=== PATIENT | female | born 1955 | race African-American/Black ===

== ENCOUNTER → 2016-12-19 | Outpatient (CLI) | payer MEDICARE ==
[2016-01-21 17:04] VITALS: BP 144/80
[~2016-12-19] MED LIST: GABA-586 PO; HYDR-971 PO; INSU100C4 SQ; INSU100I27 SQ; REGADENOSON 0.4 MG/5 ML DISP.SYRIN. IV ONE
--- NOTE | 2016-12-19 12:59 | RAD ---
APPROVED REPORT Test Type: Pharmacological Stress Nurse/Tech: Deanna Dietrich R.N. Test Indications: chest pain Cardiac History: Family history, Hypertension, Diabetes Medications: See Electronic Medical Record Medical History: See Electronic Medical Record Resting ECG: NSR Resting Heart Rate: 74 bpm Resting Blood Pressure: 135/71mmHg Pretest Chest Pain: No chest pain Nurse/Tech Notes S1S2, lungs sound clear Consent: The procedure was explained to the patient in lay terms. Informed consent was witnessed. Burt eout was entered into [employer]. History and Stress Test performed by Deanna Dietrich R.N. Pharm. Details Pharmacologic stress testing was performed using 0.4mg per 5ml of regadenoson given intravenously ove r 7-10 seconds. POST EXERCISE Reason for Termination: Infusion complete Max HR: 132 bpm Max Blood Pressure: 119/68mmHg Chest Pain: No. Arrhythmia: No. ST Change: No. INTERPRETATION Stress EKG Conclusion: No evidence of stress induced EKG changes. Imaging Protocol IMAGE PROTOCOL: Rest Tc-99m/stress Tc-99m 1 day Rest: Stress: Viability: Radiopharm.Tc99m [id number] Sestamibi Dose12.6mCi 34mCi Duration 15min. 10min. Img Date 12/19/2016 12/19/2016 Inj-Img [id number]. 60min. Rest Admin Site:IV - Right AntecubitalAdministrator:CONNER Bess Stress Admin Site: IV - Right AntecubitalAdministrator: Socorro Rascon, RT (R)(N) STRESS DATA End Diast. Vol.76.0mlAv. Heart Rate92.0bpm End Syst. Vol.21.0mlCO Index BSA0.0L/min Myocardial Whqa683.0gEject. Esgqbpru24.0% Stress Rates Pk. Fill Rate4.59EDV/secLVtime Pk. Fill 156.39msec Pk. Empty Rate4.13ESV/secLVtime Pk. Giegx823.62msec 07/11 Pk. Fill0.77EDV/sec Stress Scores Regional WT0.00Summed WT3.00 Regional WM0.00Summed WM0.00 The rest and stress images show normal perfusion, normal contraction and thickening. LV Perf. Quant 17 Seg. SSS0.00 17 Seg. SRS3.00 17 Seg. SDS0.00 Stress Defect Extent (% LAD)0.00Rest Defect Extent (% LAD)0.00Rev. Defect Extent (% LAD)0.00 Stress Defect Extent (% LCX) 0.00Rest Defect Extent (% LCX)0.00Rev. Defect Extent (% LCX)0.00 Stress Defect Extent (% RCA)0.00Rest Defect Extent (% RCA)0.00Rev. Defect Extent (% RCA)0.00 Stress Defect Extent (% WENDY)0.00Rest Defect Extent (% WENDY)0.00Rev. Defect Extent (% WENDY)0.00 Other Information Quality:Good Risk Assessment: Low Risk Conclusion 1. No evidence of stress induced EKG changes. 2. Normal perfusion at stress/rest. 3. Normal EF at > 60% 4. Low risk study
== END | disposition home or self-care (01) ==
LOC: NM 07:40
PROVIDERS: ATTEND Internal Medicine Cardiovascular Disease
DX: R07.9 Chest pain, unspecified (principal)
CPT/HCPCS: 78452; 93017; 96374; 96375; 96376; A9500; J2785

== ENCOUNTER 2017-03-09 22:11 | Emergency (ER) | payer MEDICARE ==
[~2017-03-09 22:11] MED LIST changes: +ASPI-630 PO; +ATOR20TA58 PO; +INSU200I SQ; +LISI-338 PO; +LISI1TAB3 PO; +METO25TA4 PO; -REGADENOSON 0.4 MG/5 ML DISP.SYRIN. IV ONE; +TICA90TA PO
[2017-03-09 22:56] LABS: BILIRUBIN,URINE NEGATIVE (NEG); GLUCOSE,URINE NEGATIVE (NEG); NITRITE,URINE NEGATIVE (NEG); PROTEIN,URINE NEGATIVE (NEG-TRACE)
[2017-03-09 23:05] LABS: BACTERIA,URINE MODERATE /HPF (0-FEW); RBC,URINE 0 /HPF (0-2)
[2017-03-09 23:06] LABS: SQUAMOUS EPITHELIAL CELL,UR MOD /LPF
[2017-03-09 23:29] LABS: BASO % 0 % (0-3); EOS % 2 % (0-3); HEMATOCRIT 35.4 % (36.0-47.0); HEMOGLOBIN 11.6 g/dL (12.0-15.5); LYMPH # 2.4 x10^3/uL (1.0-4.8); LYMPH % 23 % (24-48); MEAN CORPUSCULAR HEMOGLOBIN 31 pg (25-35); MEAN CORPUSCULAR HGB CONC 33 g/dL (31-37); MEAN CORPUSCULAR VOLUME 94 fL (79-100); MONO % 8 % (0-9); NEUT % 67 % (31-73); PLATELET COUNT 305 x10^3/uL (140-400); RED BLOOD COUNT 3.75 x10^6/uL (3.50-5.40); RED CELL DISTRIBUTION WIDTH 13.2 % (11.5-14.5); WHITE BLOOD COUNT 10.7 x10^3/uL (4.0-11.0)
[2017-03-09 23:39] LABS: CALCIUM 9.9 mg/dL (8.5-10.1); GFR 68.7; POTASSIUM 3.8 mmol/L (3.5-5.1)
[2017-03-09 23:46] LABS: ALBUMIN 3.8 g/dL (3.4-5.0); ALBUMIN/GLOBULIN RATIO 0.9 (1.0-1.7); TOTAL BILIRUBIN 0.3 mg/dL (0.2-1.0)
[2017-03-10 00:31] VITALS: BP 118/76
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
--- NOTE | 2017-03-10 09:02 | EKG ---
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
== END 2017-03-10 01:01 | disposition home or self-care (01) ==
LOC: ER 22:58
DX: E11.649 Type 2 diabetes mellitus with hypoglycemia without coma (principal); I10 Essential (primary) hypertension; M79.7 Fibromyalgia; Z79.4 Long term (current) use of insulin; Z95.1 Presence of aortocoronary bypass graft; Z95.5 Presence of coronary angioplasty implant and graft; Z88.6 Allergy status to analgesic agent
CPT/HCPCS: 36415; 80053; 81001; 82962; 85025; 87086; 93005; 99285-25

== ENCOUNTER → 2017-04-17 | Outpatient (CLI) | payer MEDICARE ==
--- NOTE | 2017-04-17 15:00 | RAD ---
Indication nontraumatic weakness left ring finger. Inability to extend the digit. AP oblique and lateral views of the left hand were obtained. There is suspect bony demineralization. No acute bony finding is seen. Significant degenerative changes are not apparent on plain films
[2017-04-17 15:58] LABS: CREATINE KINASE 187 U/L (26-192); GLUCOSE 305 mg/dL (70-99)
== END | disposition home or self-care (01) ==
LOC: RAD 13:57
PROVIDERS: ATTEND Psychiatry & Neurology Neurology
DX: R53.1 Weakness (principal)
CPT/HCPCS: 36415; 73130; 82306; 82550; 82607; 82947; 84443

== ENCOUNTER 2017-10-02 16:36 | Inpatient (IN) | payer MEDICARE ==
[2017-10-02 17:45] LABS: ADD MAN DIFF? NO
[2017-10-02] MEDS ORDERED: 0.9 % SODIUM CHLORIDE 10 ML DISP.SYRIN. IV (17:45)
[2017-10-02 17:46] LABS: BASO % 0 % (0-3); EOS # 0.1 x10^3/uL (0.0-0.7); EOS % 1 % (0-3); HEMATOCRIT 36.5 % (36.0-47.0); HEMOGLOBIN 12.2 g/dL (12.0-15.5); LYMPH # 2.4 x10^3/uL (1.0-4.8); LYMPH % 29 % (24-48); MEAN CORPUSCULAR HEMOGLOBIN 31 pg (25-35); MEAN CORPUSCULAR HGB CONC 33 g/dL (31-37); MEAN CORPUSCULAR VOLUME 92 fL (79-100); MONO # 0.6 x10^3/uL (0.0-1.1); MONO % 7 % (0-9); NEUT # 5.3 x10^3uL (1.8-7.7); NEUT % 63 % (31-73); PLATELET COUNT 293 x10^3/uL (140-400); RED BLOOD COUNT 3.96 x10^6/uL (3.50-5.40); RED CELL DISTRIBUTION WIDTH 14.3 % (11.5-14.5); WHITE BLOOD COUNT 8.4 x10^3/uL (4.0-11.0)
[2017-10-02] MEDS: ONDANSETRON PF 4 MG/2 ML VIAL. IV ×2 (17:50→20:43)
[2017-10-02] MEDS: IV NORMAL SALINE 1000ML BAG 1,000 ML IV ×2 (17:50→20:44)
[2017-10-02] MEDS: MORPHINE SULFATE 4 MG/ML DISP.SYRIN. IV/SQ ×2 (17:50→18:55)
[2017-10-02 17:59] LABS: ANION GAP 8 (6-14); BLOOD UREA NITROGEN 11 mg/dL (7-20); CALCIUM 9.4 mg/dL (8.5-10.1); CARBON DIOXIDE 30 mmol/L (21-32); CHLORIDE 106 mmol/L (98-107); CREATININE 0.8 mg/dL (0.6-1.0); GFR 88.5; GLUCOSE 133 mg/dL (70-99); POTASSIUM 3.9 mmol/L (3.5-5.1); SODIUM 144 mmol/L (136-145)
[2017-10-02 18:03] LABS: ALBUMIN 3.5 g/dL (3.4-5.0); ALK PHOS 79 U/L (46-116); ALT (SGPT) 25 U/L (14-59); AST (SGOT) 20 U/L (15-37); DIRECT BILIRUBIN < 0.1 mg/dL (0.0-0.2); LIPASE 66 U/L (73-393); TOTAL BILIRUBIN 0.4 mg/dL (0.2-1.0); TOTAL PROTEIN 8.3 g/dL (6.4-8.2)
[2017-10-02 18:05] LABS: TROPONINI 0.031 ng/mL (0.000-0.055)
[2017-10-02 18:11] LABS: CKMB MASS 1.3 ng/mL (0.0-3.6); CREATINE KINASE 125 U/L (26-192)
[2017-10-02] MEDS ORDERED: CONTRAST GIVEN MC (18:15)
[2017-10-02] MEDS: IOHEXOL 300 MG/ML 100ML VIAL. IV (18:31)
[2017-10-02 18:57] LABS: BILIRUBIN,URINE NEGATIVE (NEG); CLARITY,URINE CLOUDY; COLOR,URINE YELLOW; GLUCOSE,URINE NEGATIVE (NEG); NITRITE,URINE NEGATIVE (NEG); PROTEIN,URINE NEGATIVE (NEG-TRACE)
[2017-10-02 19:42] LABS: BACTERIA,URINE 0 /HPF (0-FEW); RBC,URINE OCC /HPF (0-2); SQUAMOUS EPITHELIAL CELL,UR MOD /LPF
[2017-10-02 22:04] LABS: LACTIC ACID 0.9 mmol/L (0.4-2.0)
[2017-10-03] MEDS: ONDANSETRON PF 4 MG/2 ML VIAL. IV ×2 (01:08→13:57)
[2017-10-03] MEDS: MORPHINE SULFATE 4 MG/ML DISP.SYRIN. IV ×2 (01:26→06:43)
[2017-10-03 03:35] LABS: POC GLUCOSE 174 mg/dL (70-99)
[2017-10-03 07:50] LABS: POC GLUCOSE 173 mg/dL (70-99)
[2017-10-03] MEDS: IV NORMAL SALINE 1000ML BAG 1,000 ML IV ×2 (10:10→12:28)
[2017-10-03 11:05] LABS: POC GLUCOSE 168 mg/dL (70-99)
[2017-10-03] MEDS: FAMOTIDINE 20 MG/2 ML VIAL IVP ×2 (11:23→21:38)
[2017-10-03] MEDS: MORPHINE SULFATE 4 MG/ML DISP.SYRIN. IV/SQ (13:58)
[2017-10-03 17:08] LABS: POC GLUCOSE 173 mg/dL (70-99)
[2017-10-03] MEDS: ENOXAPARIN 40 MG/0.4 ML SYRINGE. SQ (17:56)
[2017-10-03 20:50] LABS: POC GLUCOSE 189 mg/dL (70-99)
[2017-10-03] MEDS: INSULIN DETEMIR 300 UNITS/3 ML INSULN.PEN. SQ (21:00)
[2017-10-03] MEDS: GABAPENTIN 300 MG CAPSULE. PO (21:00)
[2017-10-03] MEDS: POLYETHYLENE GLYCOL 3350 17 GM PACKET. PO (21:34)
[2017-10-03] MEDS: ATORVASTATIN CALCIUM 40 MG TABLET. PO (21:35)
[2017-10-03] MEDS: DOCUSATE SODIUM 100 MG CAPSULE. PO (21:35)
[2017-10-03] MEDS: METOPROLOL TART IMMED RELEASE 25 MG TABLET. PO (21:36)
[2017-10-03] MEDS: TICAGRELOR 90 MG TABLET. PO (21:38)
[2017-10-03] MEDS: INSULIN ASPART 300 UNITS/3 ML INSULN.PEN SQ (21:38)
[2017-10-03] MEDS: fentaNYL PF VIAL 100 MCG/2 ML VIAL IV (21:40)
[2017-10-04] MEDS: TICAGRELOR 90 MG TABLET. PO ×2 (07:22→21:31)
[2017-10-04] MEDS: INSULIN ASPART 300 UNITS/3 ML INSULN.PEN SQ ×7 (07:22→21:39)
[2017-10-04] MEDS: ASPIRIN CHEWABLE 81 MG TABLET. PO (07:22)
[2017-10-04] MEDS: INSULIN DETEMIR 300 UNITS/3 ML INSULN.PEN. SQ ×2 (07:23→21:39)
[2017-10-04 08:10] LABS: POC GLUCOSE 162 mg/dL (70-99)
[2017-10-04] MEDS: DOCUSATE SODIUM 100 MG CAPSULE. PO ×2 (08:11→21:00)
[2017-10-04] MEDS: METOPROLOL TART IMMED RELEASE 25 MG TABLET. PO ×2 (08:11→21:30)
[2017-10-04] MEDS: SORBITOL 70% 30 ML SOLUTION. PO (08:12)
[2017-10-04] MEDS: POLYETHYLENE GLYCOL 3350 17 GM PACKET. PO ×2 (08:12→21:00)
[2017-10-04] MEDS: LISINOPRIL 5 MG TABLET. PO (08:12)
[2017-10-04] MEDS: FAMOTIDINE 20 MG/2 ML VIAL IVP (08:13)
[2017-10-04 11:56] LABS: POC GLUCOSE 255 mg/dL (70-99)
[2017-10-04] MEDS: fentaNYL PF VIAL 100 MCG/2 ML VIAL IV ×2 (15:39→21:33)
[2017-10-04 16:30] LABS: POC GLUCOSE 273 mg/dL (70-99)
[2017-10-04 19:13] LABS: HCV ANTIBODY <0.1 s/co ratio (0.0-0.9); HEP A IGM ABDY Negative (Negative); HEP B SURFACE AG Negative (Negative)
[2017-10-04 20:02] LABS: POC GLUCOSE 175 mg/dL (70-99)
[2017-10-04 20:03] LABS: POC GLUCOSE 176 mg/dL (70-99)
[2017-10-04] MEDS: ATORVASTATIN CALCIUM 40 MG TABLET. PO (21:28)
[2017-10-04] MEDS: FAMOTIDINE 20 MG TABLET. PO (21:31)
[2017-10-05] MEDS: fentaNYL PF VIAL 100 MCG/2 ML VIAL IV ×2 (04:49→08:04)
[2017-10-05] MEDS: INSULIN ASPART 300 UNITS/3 ML INSULN.PEN SQ ×7 (07:30→21:00)
[2017-10-05] MEDS ORDERED: CONTRAST GIVEN MC (07:45)
[2017-10-05 08:24] LABS: POC GLUCOSE 104 mg/dL (70-99)
[2017-10-05] MEDS: IOHEXOL 300 MG/ML 100ML VIAL. IV (08:42)
[2017-10-05] MEDS: INSULIN DETEMIR 300 UNITS/3 ML INSULN.PEN. SQ ×2 (09:00→21:00)
[2017-10-05] MEDS: POLYETHYLENE GLYCOL 3350 17 GM PACKET. PO ×2 (09:00→21:00)
[2017-10-05] MEDS: DOCUSATE SODIUM 100 MG CAPSULE. PO ×2 (09:09→21:00)
[2017-10-05] MEDS: TICAGRELOR 90 MG TABLET. PO ×2 (09:10→21:01)
[2017-10-05] MEDS: METOPROLOL TART IMMED RELEASE 25 MG TABLET. PO ×2 (09:10→21:01)
[2017-10-05] MEDS: ASPIRIN CHEWABLE 81 MG TABLET. PO (09:10)
[2017-10-05] MEDS: LISINOPRIL 5 MG TABLET. PO (09:10)
[2017-10-05 11:40] LABS: POC GLUCOSE 166 mg/dL (70-99)
[2017-10-05] MEDS: MAGNESIUM CITRATE 296 ML SOLUTION. PO (14:17)
[2017-10-05 14:26] LABS: HEMATOCRIT 36.2 % (36.0-47.0); HEMOGLOBIN 11.9 g/dL (12.0-15.5); MEAN CORPUSCULAR HEMOGLOBIN 30 pg (25-35); MEAN CORPUSCULAR HGB CONC 33 g/dL (31-37); MEAN CORPUSCULAR VOLUME 92 fL (79-100); PLATELET COUNT 272 x10^3/uL (140-400); RED BLOOD COUNT 3.94 x10^6/uL (3.50-5.40); WHITE BLOOD COUNT 6.9 x10^3/uL (4.0-11.0)
[2017-10-05 14:43] LABS: ANION GAP 6 (6-14); BLOOD UREA NITROGEN 6 mg/dL (7-20); CALCIUM 8.8 mg/dL (8.5-10.1); CARBON DIOXIDE 31 mmol/L (21-32); CHLORIDE 104 mmol/L (98-107); GFR 68.4; GLUCOSE 250 mg/dL (70-99); POTASSIUM 3.1 mmol/L (3.5-5.1); SODIUM 141 mmol/L (136-145)
[2017-10-05 17:15] LABS: POC GLUCOSE 205 mg/dL (70-99)
[2017-10-05] MEDS: FAMOTIDINE 20 MG TABLET. PO (21:00)
[2017-10-05] MEDS: ATORVASTATIN CALCIUM 40 MG TABLET. PO (21:01)
[2017-10-05 21:14] LABS: POC GLUCOSE 78 mg/dL (70-99)
[2017-10-06] MEDS: ASPIRIN CHEWABLE 81 MG TABLET. PO (08:14)
[2017-10-06] MEDS: POLYETHYLENE GLYCOL 3350 17 GM PACKET. PO (08:14)
[2017-10-06] MEDS: DOCUSATE SODIUM 100 MG CAPSULE. PO (08:14)
[2017-10-06] MEDS: TICAGRELOR 90 MG TABLET. PO (08:14)
[2017-10-06] MEDS: LISINOPRIL 5 MG TABLET. PO (08:15)
[2017-10-06] MEDS: METOPROLOL TART IMMED RELEASE 25 MG TABLET. PO (08:16)
[2017-10-06] MEDS: INSULIN ASPART 300 UNITS/3 ML INSULN.PEN SQ ×4 (08:19→12:55)
[2017-10-06] MEDS: INSULIN DETEMIR 300 UNITS/3 ML INSULN.PEN. SQ (08:20)
[2017-10-06 08:27] LABS: POC GLUCOSE 206 mg/dL (70-99)
[2017-10-06 12:03] LABS: POC GLUCOSE 148 mg/dL (70-99)
== END 2017-10-06 13:00 | disposition home or self-care (01) | DRG 389 ==
LOC: 5 NORTH 23:17 → ER 16:36
DX: K56.609 Unspecified intestinal obstruction, unspecified as to partial versus complete obstruction (principal); N39.0 Urinary tract infection, site not specified; E11.42 Type 2 diabetes mellitus with diabetic polyneuropathy; E66.9 Obesity, unspecified; E78.5 Hyperlipidemia, unspecified; H54.7 Unspecified visual loss; I10 Essential (primary) hypertension; I25.10 Atherosclerotic heart disease of native coronary artery without angina pectoris; K21.9 Gastro-esophageal reflux disease without esophagitis; K66.0 Peritoneal adhesions (postprocedural) (postinfection); K59.09 Other constipation; M19.90 Unspecified osteoarthritis, unspecified site; M79.7 Fibromyalgia; Z79.82 Long term (current) use of aspirin; Z82.49 Family history of ischemic heart disease and other diseases of the circulatory system; Z83.3 Family history of diabetes mellitus; Z90.49 Acquired absence of other specified parts of digestive tract; Z90.710 Acquired absence of both cervix and uterus; Z95.5 Presence of coronary angioplasty implant and graft
CPT/HCPCS: 36415; 74022; 74177; 80048; 80074; 80076; 81001; 82553; 82962; 83605; 83690; 84484; 85025; 85027; 87086; 93005; 96374; 97161-GP; 99285; 99285-25; J1650; J1815; J1956; J2270; J2405; J3010; J7030; Q9967; S0028

== ENCOUNTER → 2018-01-10 | Outpatient (CLI) | payer MEDICARE | END | disposition home or self-care (01) | LOC: MAMMO 09:40 | DX: Z12.31 Encounter for screening mammogram for malignant neoplasm of breast (principal); I10 Essential (primary) hypertension; E11.9 Type 2 diabetes mellitus without complications; E78.5 Hyperlipidemia, unspecified; E78.00 Pure hypercholesterolemia, unspecified | CPT/HCPCS: 77063; 77067 ==

== ENCOUNTER 2018-01-18 10:03 | Observation (INO) | payer MEDICARE, OTHER ==
[2018-01-18 10:40] LABS: ADD MAN DIFF? NO
[2018-01-18] MEDS: ASPIRIN CHEWABLE 81 MG TABLET. PO ×2 (10:44→14:00)
[2018-01-18] MEDS: NITROGLYCERIN SUBLINGUAL 0.4 MG BOTTLE OF 25. SL (10:45)
[2018-01-18 10:47] LABS: BASO % 1 % (0-3); EOS # 0.1 x10^3/uL (0.0-0.7); EOS % 2 % (0-3); HEMOGLOBIN 12.2 g/dL (12.0-15.5); LYMPH # 2.2 x10^3/uL (1.0-4.8); LYMPH % 28 % (24-48); MEAN CORPUSCULAR HEMOGLOBIN 30 pg (25-35); MEAN CORPUSCULAR HGB CONC 33 g/dL (31-37); MEAN CORPUSCULAR VOLUME 92 fL (79-100); MONO # 0.7 x10^3/uL (0.0-1.1); MONO % 8 % (0-9); NEUT # 4.8 x10^3uL (1.8-7.7); NEUT % 62 % (31-73); PLATELET COUNT 278 x10^3/uL (140-400); RED BLOOD COUNT 4.02 x10^6/uL (3.50-5.40); RED CELL DISTRIBUTION WIDTH 14.1 % (11.5-14.5); WHITE BLOOD COUNT 7.8 x10^3/uL (4.0-11.0)
[2018-01-18 10:52] LABS: ANION GAP 6 (6-14); BLOOD UREA NITROGEN 13 mg/dL (7-20); BUN/CREATININE RATIO 16 (6-20); CALCIUM 9.3 mg/dL (8.5-10.1); CARBON DIOXIDE 31 mmol/L (21-32); CHLORIDE 105 mmol/L (98-107); CREATININE 0.8 mg/dL (0.6-1.0); GFR 88.5; GLUCOSE 168 mg/dL (70-99); POTASSIUM 4.4 mmol/L (3.5-5.1); SODIUM 142 mmol/L (136-145)
[2018-01-18 10:56] LABS: INR 0.9 (0.8-1.1)
[2018-01-18 11:00] LABS: TROPONINI 0.028 ng/mL (0.000-0.055)
[2018-01-18 11:00] LABS: ALBUMIN 3.5 g/dL (3.4-5.0); ALBUMIN/GLOBULIN RATIO 0.8 (1.0-1.7); ALK PHOS 96 U/L (46-116); ALT (SGPT) 28 U/L (14-59); AST (SGOT) 15 U/L (15-37); LIPASE 127 U/L (73-393); TOTAL BILIRUBIN 0.3 mg/dL (0.2-1.0)
[2018-01-18] MEDS: IV NORMAL SALINE 500ML BAG 500 ML IV (11:03)
[2018-01-18] MEDS ORDERED: fentaNYL PF VIAL 100 MCG/2 ML VIAL (11:06)
[2018-01-18] MEDS ORDERED: NITROGLYCERIN OINT 1 GM PACKET. (11:06)
[2018-01-18 11:10] LABS: TOTAL PROTEIN 8.1 g/dL (6.4-8.2)
[2018-01-18] MEDS: fentaNYL PF VIAL 100 MCG/2 ML VIAL IV ×2 (11:12→20:57)
[2018-01-18] MEDS: NITROGLYCERIN OINT 1 GM PACKET. TP (11:13)
[2018-01-18 11:17] LABS: BILIRUBIN,URINE NEGATIVE (NEG); CLARITY,URINE CLEAR; COLOR,URINE YELLOW; GLUCOSE,URINE NEGATIVE (NEG); NITRITE,URINE NEGATIVE (NEG); PH,URINE 7.5; PROTEIN,URINE NEGATIVE (NEG-TRACE); UROBILINOGEN,URINE 0.2 mg/dL (0.2 mg/dL)
[2018-01-18 11:29] LABS: BACTERIA,URINE 0 /HPF (0-FEW); RBC,URINE 0 /HPF (0-2); SQUAMOUS EPITHELIAL CELL,UR FEW /LPF; WBC,URINE 0 /HPF (0-4)
[2018-01-18] MEDS: IOHEXOL 300 MG/ML 100ML VIAL. IV (11:29)
[2018-01-18] MEDS ORDERED: CONTRAST GIVEN. MC (11:30)
[2018-01-18 12:55] LABS: POC GLUCOSE 116 mg/dL (70-99)
[2018-01-18 13:45] LABS: POC GLUCOSE 113 mg/dL (70-99)
[2018-01-18 13:52] LABS: D-DIMER 0.67 ug/mlFEU (0.00-0.50)
[2018-01-18] MEDS: LISINOPRIL 5 MG TABLET. PO (13:59)
[2018-01-18] MEDS: GABAPENTIN 300 MG CAPSULE. PO ×3 (14:00→21:00)
[2018-01-18] MEDS: INSULIN LISPRO 300 UNITS/3 ML INSULN.PEN. SQ ×2 (14:00→17:10)
[2018-01-18] MEDS: METOPROLOL TART IMMED RELEASE 25 MG TABLET. PO ×2 (14:00→20:56)
[2018-01-18] MEDS: ENOXAPARIN 40 MG/0.4 ML SYRINGE. SQ (14:01)
[2018-01-18] MEDS: POLYETHYLENE GLYCOL 3350 17 GM PACKET. PO (14:01)
[2018-01-18 15:45] LABS: TROPONINI 0.027 ng/mL (0.000-0.055)
[2018-01-18 16:27] LABS: POC GLUCOSE 191 mg/dL (70-99)
[2018-01-18 18:21] LABS: TROPONINI 0.029 ng/mL (0.000-0.055)
[2018-01-18 20:35] LABS: POC GLUCOSE 157 mg/dL (70-99)
[2018-01-18] MEDS: ATORVASTATIN CALCIUM 40 MG TABLET. PO (20:55)
[2018-01-18] MEDS: TICAGRELOR 90 MG TABLET. PO (20:55)
[2018-01-18] MEDS: INSULIN GLARGINE 300 UNITS/3 ML INSULN.PEN. SQ (21:04)
[2018-01-19] MEDS: NITROGLYCERIN SUBLINGUAL 0.4 MG BOTTLE OF 25. SL (03:31)
[2018-01-19 04:38] LABS: ADD MAN DIFF? NO
[2018-01-19 04:52] LABS: BASO % 0 % (0-3); EOS # 0.1 x10^3/uL (0.0-0.7); EOS % 2 % (0-3); HEMATOCRIT 34.2 % (36.0-47.0); HEMOGLOBIN 11.2 g/dL (12.0-15.5); LYMPH # 2.2 x10^3/uL (1.0-4.8); LYMPH % 31 % (24-48); MEAN CORPUSCULAR HEMOGLOBIN 30 pg (25-35); MEAN CORPUSCULAR HGB CONC 33 g/dL (31-37); MEAN CORPUSCULAR VOLUME 92 fL (79-100); MONO # 0.5 x10^3/uL (0.0-1.1); MONO % 7 % (0-9); NEUT # 4.3 x10^3uL (1.8-7.7); NEUT % 59 % (31-73); PLATELET COUNT 251 x10^3/uL (140-400); RED BLOOD COUNT 3.74 x10^6/uL (3.50-5.40); RED CELL DISTRIBUTION WIDTH 13.9 % (11.5-14.5); WHITE BLOOD COUNT 7.2 x10^3/uL (4.0-11.0)
[2018-01-19 05:14] LABS: ANION GAP 4 (6-14); BLOOD UREA NITROGEN 13 mg/dL (7-20); CALCIUM 8.5 mg/dL (8.5-10.1); CARBON DIOXIDE 29 mmol/L (21-32); CHLORIDE 106 mmol/L (98-107); CREATININE 0.8 mg/dL (0.6-1.0); GFR 88.5; GLUCOSE 162 mg/dL (70-99); POTASSIUM 3.9 mmol/L (3.5-5.1); SODIUM 139 mmol/L (136-145)
[2018-01-19 05:47] LABS: POC GLUCOSE 150 mg/dL (70-99)
[2018-01-19] MEDS: INSULIN LISPRO 300 UNITS/3 ML INSULN.PEN. SQ ×2 (08:01→11:58)
[2018-01-19] MEDS: INSULIN GLARGINE 300 UNITS/3 ML INSULN.PEN. SQ (08:03)
[2018-01-19 08:08] LABS: POC GLUCOSE 150 mg/dL (70-99)
[2018-01-19] MEDS: POLYETHYLENE GLYCOL 3350 17 GM PACKET. PO (08:37)
[2018-01-19] MEDS: METOPROLOL TART IMMED RELEASE 25 MG TABLET. PO (08:38)
[2018-01-19] MEDS: LISINOPRIL 5 MG TABLET. PO (08:39)
[2018-01-19] MEDS: TICAGRELOR 90 MG TABLET. PO (08:40)
[2018-01-19] MEDS: ASPIRIN CHEWABLE 81 MG TABLET. PO (08:40)
[2018-01-19] MEDS: GABAPENTIN 300 MG CAPSULE. PO ×2 (09:00→14:00)
[2018-01-19 10:57] LABS: POC GLUCOSE 121 mg/dL (70-99)
[2018-01-19] MEDS: ENOXAPARIN 40 MG/0.4 ML SYRINGE. SQ (14:13)
== END 2018-01-19 15:15 | disposition home or self-care (01) ==
LOC: ER 10:03 → 5 SOUTH 11:00
DX: R07.89 Other chest pain (principal); E11.40 Type 2 diabetes mellitus with diabetic neuropathy, unspecified; E78.5 Hyperlipidemia, unspecified; H54.8 Legal blindness, as defined in USA; I10 Essential (primary) hypertension; M19.90 Unspecified osteoarthritis, unspecified site; I25.10 Atherosclerotic heart disease of native coronary artery without angina pectoris; K21.9 Gastro-esophageal reflux disease without esophagitis; Z82.0 Family history of epilepsy and other diseases of the nervous system; Z82.3 Family history of stroke; Z82.49 Family history of ischemic heart disease and other diseases of the circulatory system; Z83.3 Family history of diabetes mellitus; Z90.49 Acquired absence of other specified parts of digestive tract; Z90.710 Acquired absence of both cervix and uterus; Z95.5 Presence of coronary angioplasty implant and graft
CPT/HCPCS: 36415; 71045; 71275; 80048; 80053; 81001; 82962; 83690; 84484; 85025; 85379; 85610; 93005; 93970; 96361; 96372; 96374; 96376; 99285-25; G0378; G0379; J1650; J1815; J3010; J7040; Q9967

== ENCOUNTER 2018-01-25 19:00 | Emergency (ER) | payer MEDICARE, OTHER ==
[2018-01-25 19:46] LABS: POC GLUCOSE 35 mg/dL (70-99)
[2018-01-25 20:00] LABS: ADD MAN DIFF? NO
[2018-01-25 20:03] LABS: BASO # 0.1 x10^3/uL (0.0-0.2); BASO % 1 % (0-3); BILIRUBIN,URINE NEGATIVE (NEG); CLARITY,URINE CLEAR; COLOR,URINE YELLOW; EOS % 0 % (0-3); GLUCOSE,URINE NEGATIVE (NEG); HEMATOCRIT 39.6 % (36.0-47.0); HEMOGLOBIN 12.9 g/dL (12.0-15.5); LYMPH # 3.6 x10^3/uL (1.0-4.8); LYMPH % 25 % (24-48); MEAN CORPUSCULAR HEMOGLOBIN 30 pg (25-35); MEAN CORPUSCULAR HGB CONC 33 g/dL (31-37); MEAN CORPUSCULAR VOLUME 92 fL (79-100); MONO # 0.9 x10^3/uL (0.0-1.1); MONO % 7 % (0-9); NEUT # 9.5 x10^3uL (1.8-7.7); NEUT % 67 % (31-73); NITRITE,URINE NEGATIVE (NEG); PH,URINE 5.5; PLATELET COUNT 334 x10^3/uL (140-400); PROTEIN,URINE NEGATIVE (NEG-TRACE); RED BLOOD COUNT 4.32 x10^6/uL (3.50-5.40); RED CELL DISTRIBUTION WIDTH 14.2 % (11.5-14.5); UROBILINOGEN,URINE 0.2 mg/dL (0.2 mg/dL); WHITE BLOOD COUNT 14.1 x10^3/uL (4.0-11.0)
[2018-01-25 20:15] LABS: POC GLUCOSE 42 mg/dL (70-99)
[2018-01-25] MEDS: IV NORMAL SALINE 1000ML BAG 1,000 ML IV (20:15)
[2018-01-25] MEDS: ONDANSETRON PF 4 MG/2 ML VIAL. IV (20:20)
[2018-01-25] MEDS: DEXTROSE 50% 25 GM / 50ML DISP.SYRIN. IV (20:21)
[2018-01-25 20:24] LABS: ALBUMIN 3.7 g/dL (3.4-5.0); ALBUMIN/GLOBULIN RATIO 0.7 (1.0-1.7); ALK PHOS 90 U/L (46-116); ALT (SGPT) 30 U/L (14-59); ANION GAP 10 (6-14); AST (SGOT) 18 U/L (15-37); BLOOD UREA NITROGEN 18 mg/dL (7-20); BUN/CREATININE RATIO 23 (6-20); CALCIUM 9.1 mg/dL (8.5-10.1); CARBON DIOXIDE 27 mmol/L (21-32); CHLORIDE 106 mmol/L (98-107); CREATININE 0.8 mg/dL (0.6-1.0); GFR 88.5; GLUCOSE 43 mg/dL (70-99); POTASSIUM 3.5 mmol/L (3.5-5.1); SODIUM 143 mmol/L (136-145); TOTAL BILIRUBIN 0.4 mg/dL (0.2-1.0); TOTAL PROTEIN 8.7 g/dL (6.4-8.2)
[2018-01-25] MEDS: IOHEXOL 240 MG/ML 50ML VIAL. PO (20:30)
[2018-01-25] MEDS ORDERED: CONTRAST GIVEN. MC (20:30)
[2018-01-25 20:33] LABS: BACTERIA,URINE 0 /HPF (0-FEW); SQUAMOUS EPITHELIAL CELL,UR MANY /LPF
[2018-01-25] MEDS: MORPHINE SULFATE 4 MG/ML DISP.SYRIN. IV (20:52)
[2018-01-25 21:05] LABS: POC GLUCOSE 113 mg/dL (70-99)
[2018-01-25] MEDS: IOHEXOL 300 MG/ML 100ML VIAL. IV (21:10)
[2018-01-25 21:33] LABS: POC GLUCOSE 75 mg/dL (70-99)
== END 2018-01-25 22:00 | disposition home or self-care (01) ==
LOC: ER 19:00
DX: R19.7 Diarrhea, unspecified (principal); R11.0 Nausea; I10 Essential (primary) hypertension; E11.649 Type 2 diabetes mellitus with hypoglycemia without coma; R10.32 Left lower quadrant pain; Z90.49 Acquired absence of other specified parts of digestive tract; Z95.5 Presence of coronary angioplasty implant and graft; Z90.710 Acquired absence of both cervix and uterus; Z88.8 Allergy status to other drugs, medicaments and biological substances
CPT/HCPCS: 36415; 74177; 80053; 81001; 82962; 85025; 87086; 96361; 96374; 96375; 99285-25; J2270; J2405; J7030; J7042; Q9966; Q9967

== ENCOUNTER → 2018-03-04 | Emergency (ER) | payer MEDICARE, OTHER ==
[~2018-03-04] VITALS: Ht 160 cm; Wt 86.2 kg
[~2018-03-04] MED LIST changes: +LEVO500T59 PO; +MORPHINE SULFATE 4 MG/ML VIAL. IV ONE; +ONDA4TAB10 SL; +ONDANSETRON PF 4 MG/2 ML VIAL. IV ONE; +POLY17PO3 PO
[2018-03-04 18:22] LABS: BASO % 1 % (0-3); EOS # 0.1 x10^3/uL (0.0-0.7); EOS % 1 % (0-3); HEMOGLOBIN 12.9 g/dL (12.0-15.5); LYMPH # 2.3 x10^3/uL (1.0-4.8); LYMPH % 23 % (24-48); MEAN CORPUSCULAR HEMOGLOBIN 31 pg (25-35); MEAN CORPUSCULAR HGB CONC 33 g/dL (31-37); MEAN CORPUSCULAR VOLUME 93 fL (79-100); MONO # 0.9 x10^3/uL (0.0-1.1); MONO % 9 % (0-9); NEUT # 6.7 x10^3uL (1.8-7.7); NEUT % 66 % (31-73); PLATELET COUNT 308 x10^3/uL (140-400); RED BLOOD COUNT 4.18 x10^6/uL (3.50-5.40); RED CELL DISTRIBUTION WIDTH 14.8 % (11.5-14.5); WHITE BLOOD COUNT 10.1 x10^3/uL (4.0-11.0)
[2018-03-04 18:30] VITALS: BP 115/70
[2018-03-04 18:33] LABS: CALCIUM 9.6 mg/dL (8.5-10.1); CREATININE 0.8 mg/dL (0.6-1.0); GFR 88.5; POTASSIUM 4.1 mmol/L (3.5-5.1)
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
[2018-03-04 18:39] LABS: ALBUMIN 3.7 g/dL (3.4-5.0); ALBUMIN/GLOBULIN RATIO 0.8 (1.0-1.7); TOTAL BILIRUBIN 0.3 mg/dL (0.2-1.0); TOTAL PROTEIN 8.6 g/dL (6.4-8.2)
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
[2018-03-04 19:13] LABS: BILIRUBIN,URINE NEGATIVE (NEG); CLARITY,URINE CLEAR; COLOR,URINE YELLOW; NITRITE,URINE NEGATIVE (NEG); PH,URINE 5.5; PROTEIN,URINE NEGATIVE (NEG-TRACE); UROBILINOGEN,URINE 0.2 mg/dL (0.2 mg/dL)
[2018-03-04 19:32] LABS: BACTERIA,URINE FEW /HPF (0-FEW); RBC,URINE OCC /HPF (0-2); SQUAMOUS EPITHELIAL CELL,UR MOD /LPF
[2018-03-04 19:33] LABS: HYALINE CASTS, URINE OCCASIONAL /HPF
--- NOTE | 2018-03-05 05:27 | RAD ---
CHEST AP ONLY Clinical Indication: abdominal pain. Hx of SBO Comparison: AP chest January 18, 2018. Findings: The cardiomediastinal silhouette is normal. Mild elevation right hemidiaphragm. Lungs are clear. There is no pneumothorax. No pleural effusion is appreciated. No acute bone abnormality. IMPRESSION: No acute cardiopulmonary process. Electronically signed by: Presley Jacobo MD (03/05/2018 5:24 AM) [id number]
--- NOTE | 2018-03-05 06:14 | EKG ---
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
== END | disposition home or self-care (01) ==
LOC: ER 16:07
DX: R10.9 Unspecified abdominal pain (principal); E10.9 Type 1 diabetes mellitus without complications; I10 Essential (primary) hypertension; Z90.49 Acquired absence of other specified parts of digestive tract; Z90.710 Acquired absence of both cervix and uterus; Z88.6 Allergy status to analgesic agent
CPT/HCPCS: 36415; 71045; 74176; 80053; 81001; 83690; 84484; 85025; 93005; 96374; 96375; 99285; J2270; J2405

== ENCOUNTER 2018-05-02 06:52 | Emergency (ER) | payer MEDICAID, MEDICARE, OTHER ==
[~2018-05-02] VITALS: Ht 160 cm; Wt 89.4 kg
[~2018-05-02 06:52] MED LIST changes: -MORPHINE SULFATE 4 MG/ML VIAL. IV ONE; -ONDANSETRON PF 4 MG/2 ML VIAL. IV ONE
[2018-05-02] MEDS ORDERED: ONDANSETRON PF 4 MG/2 ML VIAL. IV ONE (07:45)
[2018-05-02] MEDS ORDERED: IV NORMAL SALINE 1000ML BAG 1,000 ML IV ONE (07:45)
[2018-05-02] MEDS ORDERED: MORPHINE SULFATE 4 MG/ML VIAL. IV ONE (07:45)
[2018-05-02 07:50] LABS: BASO % 0 % (0-3); EOS # 0.1 x10^3/uL (0.0-0.7); EOS % 1 % (0-3); HEMATOCRIT 37.5 % (36.0-47.0); HEMOGLOBIN 12.5 g/dL (12.0-15.5); LYMPH # 1.7 x10^3/uL (1.0-4.8); LYMPH % 17 % (24-48); MEAN CORPUSCULAR HEMOGLOBIN 31 pg (25-35); MEAN CORPUSCULAR HGB CONC 34 g/dL (31-37); MEAN CORPUSCULAR VOLUME 93 fL (79-100); MONO # 0.6 x10^3/uL (0.0-1.1); MONO % 6 % (0-9); NEUT # 7.9 x10^3uL (1.8-7.7); NEUT % 76 % (31-73); PLATELET COUNT 236 x10^3/uL (140-400); RED BLOOD COUNT 4.04 x10^6/uL (3.50-5.40); WHITE BLOOD COUNT 10.3 x10^3/uL (4.0-11.0)
[2018-05-02 07:55] LABS: BILIRUBIN,URINE MODERATE (NEG); CLARITY,URINE CLOUDY; COLOR,URINE RED; NITRITE,URINE POSITIVE (NEG); PH,URINE 5.5; PROTEIN,URINE 100 mg/dL (NEG-TRACE)
[2018-05-02 07:59] LABS: CALCIUM 8.9 mg/dL (8.5-10.1); CREATININE 0.9 mg/dL (0.6-1.0); GFR 77.3
[2018-05-02 08:05] LABS: SQUAMOUS EPITHELIAL CELL,UR MOD /LPF
[2018-05-02 08:05] LABS: ALBUMIN 3.3 g/dL (3.4-5.0); ALBUMIN/GLOBULIN RATIO 0.7 (1.0-1.7); TOTAL BILIRUBIN 0.3 mg/dL (0.2-1.0)
[2018-05-02 08:06] LABS: BACTERIA,URINE MANY /HPF (0-FEW); RBC,URINE TNTC /HPF (0-2); WBC,URINE >40 /HPF (0-4)
[2018-05-02 09:30] VITALS: BP 132/62
[2018-05-02] MEDS ORDERED: PHEN100T82 PO (09:53)
[2018-05-02] MEDS ORDERED: CEPH-264 PO (09:53)
--- NOTE | 2018-05-02 12:58 | PHYS DOC ---
Past Medical History Past Medical History: CAD, Diabetes-Type II, Hypertension Additional Past Medical Histor: cardiac stents Past Surgical History: Other Additional Past Surgical Histo: CATARACTS,STENTS,HEART CATH Alcohol Use: None Drug Use: None Adult General Chief Complaint Chief Complaint: ABDOMINAL PAIN HPI HPI Patient is a 62 year old female who presents with urinary frequency, urgency and hematuria diffuse lower abdominal pain since yesterday. No fever chills, nausea vomiting or sweats. No flank pain. Patient reports history of stone but states pain feels different No other acute symptoms or complaints. Primarily was suggested . [] Review of Systems Review of Systems ROS as per HPI All other systems were reviewed and found to be within normal limits, except as documented in this note. Current Medications Current Medications Current Medications Medications (Trade) Dose Ordered Sig/Elroy Start Time Stop Time Status Last Admin Dose Admin Ceftriaxone Sodium 50 ml @ 100 mls/hr 1X ONCE 05/02/18 09:00 05/02/18 09:29 DC 05/02/18 09:54 100 MLS/HR Morphine Sulfate (Morphine Sulfate) 4 mg 1X ONCE 05/02/18 07:45 05/02/18 07:46 DC 05/02/18 08:30 4 MG Ondansetron HCl (Zofran) 4 mg 1X ONCE 05/02/18 07:45 05/02/18 07:46 DC 05/02/18 08:28 4 MG Sodium Chloride 1,000 ml @ 1,000 mls/hr 1X ONCE 05/02/18 07:45 05/02/18 08:44 DC 05/02/18 08:28 1,000 MLS/HR Allergies Allergies Allergies Coded Allergies Type Severity Reaction Last Updated Verified ibuprofen Allergy Intermediate hyperventilate, vomit 02/22/17 Yes Physical Exam Physical Exam Constitutional: Well developed, well nourished, no acute distress, non-toxic appearance. [] HENT: Normocephalic, atraumatic, bilateral external ears normal, oropharynx moist. [] Eyes: PERRLA, EOMI, conjunctiva normal, no discharge. [] Neck: Normal range of motion. [] Cardiovascular:Heart rate regular rhythm, no murmur [] Lungs & Thorax: Bilateral breath sounds clear to auscultation [] Abdomen: Bowel sounds normal, soft, no tenderness. [] Skin: Warm, dry, no erythema, no rash. [] Back: No tenderness. [] Extremities: No tenderness. [] Neurologic: Alert and oriented X 3, normal motor function, normal sensory function, no focal deficits noted. [] Psychologic: Affect normal, judgement normal, mood normal. [] Current Patient Data Vital Signs Vital Signs Date Time Temp Pulse Resp B/P (MAP) Pulse Ox O2 Delivery O2 Flow Rate FiO2 05/02/18 09:30 89 16 132/62 (85) 95 05/02/18 08:30 Room Air 05/02/18 07:00 97.7 97.7 Lab Values Laboratory Tests Test 05/02/18 07:30 05/02/18 07:35 Urine Collection Type Void Urine Color Red Urine Clarity Cloudy Urine pH 5.5 Urine Specific [place] 1.025 Urine Protein 100 mg/dL (NEG-TRACE) Urine Glucose (UA) Negative mg/dL (NEG) Urine Ketones (Stick) Trace mg/dL (NEG) Urine Blood Large (NEG) Urine Nitrite Positive (NEG) Urine Bilirubin Moderate (NEG) Urine Urobilinogen Dipstick 1.0 mg/dL (0.2 mg/dL) Urine Leukocyte Esterase Large (NEG) Urine RBC Tntc /HPF (0-2) Urine WBC >40 /HPF (0-4) Urine Squamous Epithelial Cells Mod /LPF Urine Bacteria Many /HPF (0-FEW) Urine Mucus Slight /LPF White Blood Count 10.3 x10^3/uL (4.0-11.0) Red Blood Count 4.04 x10^6/uL (3.50-5.40) Hemoglobin 12.5 g/dL (12.0-15.5) Hematocrit 37.5 % (36.0-47.0) Mean Corpuscular Volume 93 fL (79-100) Mean Corpuscular Hemoglobin 31 pg (25-35) Mean Corpuscular Hemoglobin Concent 34 g/dL (31-37) Red Cell Distribution Width 14.0 % (11.5-14.5) Platelet Count 236 x10^3/uL (140-400) Neutrophils (%) (Auto) 76 % (31-73) H Lymphocytes (%) (Auto) 17 % (24-48) L Monocytes (%) (Auto) 6 % (0-9) Eosinophils (%) (Auto) 1 % (0-3) Basophils (%) (Auto) 0 % (0-3) Neutrophils # (Auto) 7.9 x10^3uL (1.8-7.7) H Lymphocytes # (Auto) 1.7 x10^3/uL (1.0-4.8) Monocytes # (Auto) 0.6 x10^3/uL (0.0-1.1) Eosinophils # (Auto) 0.1 x10^3/uL (0.0-0.7) Basophils # (Auto) 0.0 x10^3/uL (0.0-0.2) Sodium Level 145 mmol/L (136-145) Potassium Level 4.0 mmol/L (3.5-5.1) Chloride Level 107 mmol/L (98-107) Carbon Dioxide Level 28 mmol/L (21-32) Anion Gap 10 (6-14) Blood Urea Nitrogen 26 mg/dL (7-20) H Creatinine 0.9 mg/dL (0.6-1.0) Estimated GFR (Cockcroft-Gault) 77.3 BUN/Creatinine Ratio 29 (6-20) H Glucose Level 213 mg/dL (70-99) H Calcium Level 8.9 mg/dL (8.5-10.1) Total Bilirubin 0.3 mg/dL (0.2-1.0) Aspartate Amino Transferase (AST) 20 U/L (15-37) Alanine Aminotransferase (ALT) 28 U/L (14-59) Alkaline Phosphatase 87 U/L (46-116) Total Protein 8.0 g/dL (6.4-8.2) Albumin 3.3 g/dL (3.4-5.0) L Albumin/Globulin Ratio 0.7 (1.0-1.7) L Laboratory Tests 05/02/18 07:35 Laboratory Tests 05/02/18 07:35 EKG EKG [] Radiology/Procedures Radiology/Procedures [] Course & Med Decision Making Course & Med Decision Making Pertinent Labs and Imaging studies reviewed. (See chart for details) [IV fluids, antibiotics given. Patient's abdomen remains soft, nonsurgical and repeat evaluation. We'll treat for hemorrhagic cystitis with instructions follow -up with PCP in 2-3 days for reevaluation and to review urine culture results. Return precautions reviewed. Patient verbalizes understanding agreement discharge instructions prior to departure.] Dragon Disclaimer Dragqueta Disclaimer This electronic medical record was generated, in whole or in part, using a voice recognition dictation system. Departure Departure Impression: Primary Impression: Hemorrhagic cystitis Disposition: 01 HOME, SELF-CARE Condition: GOOD Patient Instructions: Urinary Tract Infection, [id number] Additional Instructions: Please increase fluids, take antibiotics and pain medications as directed. Follow-up with your PCP in 2-3 days for urine culture results and for further evaluation. If you develop new or worsening symptoms, return to the ED. Scripts Phenazopyridine Hcl (PYRIDIUM) 100 Mg Tablet 200 MG PO TID, #6 TAB Prov: TRUPTI MARTINEZ DO 05/02/18 Cephalexin (KEFLEX) 500 Mg Capsule 1 CAP PO TID, #21 CAP Prov: TRUPTI MARTINEZ DO 05/02/18 TRUPTI MARTINEZ DO May 02, 2018 12:58
[2018-05-10] MEDS ORDERED: PIOG15TA42 PO (06:41)
== END 2018-05-02 10:10 | disposition home or self-care (01) ==
LOC: ER 06:52
DX: N30.91 Cystitis, unspecified with hematuria (principal); E11.9 Type 2 diabetes mellitus without complications; I10 Essential (primary) hypertension; I25.10 Atherosclerotic heart disease of native coronary artery without angina pectoris; Z95.5 Presence of coronary angioplasty implant and graft; Z88.8 Allergy status to other drugs, medicaments and biological substances
CPT/HCPCS: 36415; 80053; 81001; 85025; 96361; 96365; 96375; 99284; J0690; J2270; J2405; J7030; 87086; 87186

== ENCOUNTER → 2018-05-10 | Day surgery (SDC) | payer MEDICARE, OTHER ==
[~2018-05-10] MED LIST changes: +CEPH-264 PO; +HYDROmorphone 2 MG/ML VIAL IV PRN; +IV RINGERS,LACTATED 1000ML 1,000 ML IV SCH; +LIDOCAINE 1% PF 2 ML VIAL. ID PRN; +LIDOCAINE 1% PF 2 ML VIAL. ONE; +MORPHINE SULFATE 2 MG/ML VIAL. IV PRN; +ONDANSETRON PF 4 MG/2 ML VIAL. IV PRN; +PHEN100T82 PO; +PIOG15TA42 PO; +PROCHLORPERAZINE 10 MG/2 ML VIAL. IV PRN; +PROPOFOL 20 ML IV ONE; +fentaNYL PF VIAL 100 MCG/2 ML VIAL IV PRN
[2018-05-10 08:15] VITALS: BP 125/72
--- NOTE | 2018-05-13 23:07 | PATHOLOGY ---
[facility] Accession Number: [id number] . 01 Material submitted: . RANDOM COLON BIOPSIES . 01 Clinical history: . Diarrhea . 02 Diagnosis: "Random colon biopsies", biopsy: - Colonic mucosa with mild reactive changes; no evidence of active, lymphocytic or collagenous colitis. . (CLW:vjm;05/13/2018) AGA/05/13/2018 . 02 Electronically signed: . Dania Philip MD, Pathologist NPI- [id number] . 01 Gross description: . Received in formalin labeled "Leila Coronado, random colon biopsies," are multiple segments of theodore soft tissue measuring 1.9 x 0.5 x 0.2 cm in aggregate dimensions. The specimen is filtered and entirely submitted in cassette A1. (TSD; 05/10/2018) TOB/TOB . 02 Pathologist provided ICD-10: R19.7 . 02 CPT . 952866 Specimen Comment: A courtesy copy of this report has been sent to Specimen Comment: [phone], . Specimen Comment: Report sent to / DR YANES Specimen Comment: A duplicate report has been generated due to demographic updates. Performed at: 01 [facility] [address], [place], [place] [id number] MD Lj Franco MD Phone: [phone] Performed at: 02 [facility] [address] [place], [place] [id number] MD Dre New MD Phone: [phone]
== END | disposition home or self-care (01) ==
LOC: ENDOS 06:25
PROVIDERS: ATTEND Internal Medicine Gastroenterology
DX: K64.0 First degree hemorrhoids (principal); E11.9 Type 2 diabetes mellitus without complications; E78.00 Pure hypercholesterolemia, unspecified; I11.9 Hypertensive heart disease without heart failure; I25.2 Old myocardial infarction; M19.90 Unspecified osteoarthritis, unspecified site; Z95.5 Presence of coronary angioplasty implant and graft; Z83.3 Family history of diabetes mellitus; Z82.49 Family history of ischemic heart disease and other diseases of the circulatory system; Z79.899 Other long term (current) drug therapy; Z79.84 Long term (current) use of oral hypoglycemic drugs; Z98.51 Tubal ligation status; Z90.49 Acquired absence of other specified parts of digestive tract; Z90.710 Acquired absence of both cervix and uterus; Z98.890 Other specified postprocedural states
CPT/HCPCS: 45380; 82962; J2704; 88305

== ENCOUNTER 2018-10-01 13:20 | Emergency (ER) | payer MEDICARE, OTHER ==
[~2018-10-01] VITALS: Ht 160 cm; Wt 89.4 kg
[~2018-10-01 13:20] MED LIST changes: -GABA-586 PO; +GABA300C18 PO; +HYDR-3164 PO; -HYDR-971 PO; -HYDROmorphone 2 MG/ML VIAL IV PRN; -IV RINGERS,LACTATED 1000ML 1,000 ML IV SCH; -LIDOCAINE 1% PF 2 ML VIAL. ID PRN; -LIDOCAINE 1% PF 2 ML VIAL. ONE; -MORPHINE SULFATE 2 MG/ML VIAL. IV PRN; -ONDANSETRON PF 4 MG/2 ML VIAL. IV PRN; +POLY17PO28 PO; -POLY17PO3 PO; -PROCHLORPERAZINE 10 MG/2 ML VIAL. IV PRN; -PROPOFOL 20 ML IV ONE; -fentaNYL PF VIAL 100 MCG/2 ML VIAL IV PRN
[2018-10-01 13:38] VITALS: BP 161/73
[2018-10-01] MEDS ORDERED: IV NORMAL SALINE 500ML BAG 500 ML IV ONE (14:15)
[2018-10-01] MEDS ORDERED: ONDANSETRON PF 4 MG/2 ML VIAL. IV ONE (14:15)
[2018-10-01] MEDS ORDERED: fentaNYL PF VIAL 100 MCG/2 ML VIAL IV ONE (14:15)
[2018-10-01 14:23] LABS: BILIRUBIN,URINE NEGATIVE (NEG); CLARITY,URINE CLEAR; COLOR,URINE YELLOW; NITRITE,URINE NEGATIVE (NEG); PH,URINE 5.5; PROTEIN,URINE NEGATIVE (NEG-TRACE)
[2018-10-01 14:29] LABS: BACTERIA,URINE MANY /HPF (0-FEW); SQUAMOUS EPITHELIAL CELL,UR MANY /LPF
[2018-10-01 14:30] LABS: RBC,URINE 0 /HPF (0-2)
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
[2018-10-01 15:08] LABS: BASO % 1 % (0-3); EOS # 0.1 x10^3/uL (0.0-0.7); EOS % 1 % (0-3); HEMATOCRIT 38.2 % (36.0-47.0); HEMOGLOBIN 12.3 g/dL (12.0-15.5); LYMPH # 2.2 x10^3/uL (1.0-4.8); LYMPH % 30 % (24-48); MEAN CORPUSCULAR HEMOGLOBIN 29 pg (25-35); MEAN CORPUSCULAR HGB CONC 32 g/dL (31-37); MEAN CORPUSCULAR VOLUME 91 fL (79-100); MONO # 0.5 x10^3/uL (0.0-1.1); MONO % 7 % (0-9); NEUT # 4.6 x10^3uL (1.8-7.7); NEUT % 62 % (31-73); PLATELET COUNT 274 x10^3/uL (140-400); RED BLOOD COUNT 4.18 x10^6/uL (3.50-5.40); RED CELL DISTRIBUTION WIDTH 14.8 % (11.5-14.5); WHITE BLOOD COUNT 7.4 x10^3/uL (4.0-11.0)
[2018-10-01 15:26] LABS: CALCIUM 8.9 mg/dL (8.5-10.1); CREATININE 0.7 mg/dL (0.6-1.0); GFR 102.9; POTASSIUM 3.5 mmol/L (3.5-5.1)
--- NOTE | 2018-10-01 15:27 | EKG ---
[facility] [address] [place] [address] Test Date: 2018-10-01 Test Time: 14:09:09 Pat Name: MARIA FERNANDA TODD Department: Room: Gender: F Integration Analyst: TALHA : 1955 Requested By: SAFIA SAMUEL Order Number: [id number] Reading MD: Yariel Rodriguez MD Measurements Intervals [place]de Rate: 68 P: 34 TN: 186 QRS: -4 QRSD: 94 T: 149 QT: 396 QTc: 426 Interpretive Statements SINUS RHYTHM CONSIDER PRIOR ANTEROSEPTAL INFARCT NON-SPECIFIC ST/T CHANGES Electronically Signed On 10-03-2018 14:41:19 CDT by Yariel Rodriguez MD
[2018-10-01 15:40] LABS: ALBUMIN 3.2 g/dL (3.4-5.0); ALBUMIN/GLOBULIN RATIO 0.8 (1.0-1.7); MAGNESIUM 2.1 mg/dL (1.8-2.4); TOTAL BILIRUBIN 0.3 mg/dL (0.2-1.0); TOTAL PROTEIN 7.2 g/dL (6.4-8.2)
[2018-10-01] MEDS ORDERED: IOHEXOL 300 MG/ML 100ML VIAL. IV ONE (15:45)
[2018-10-01] MEDS ORDERED: CONTRAST GIVEN. MC PRN (15:45)
--- NOTE | 2018-10-01 16:00 | RAD ---
CT ABD PELV W/ IV CONTRST ONLY Indication: diffuse abd pain- past hx of colonsc. and bowel resection
IV OMNI 300 75 MLS
PREVIOUS Exposure: One or more of the following individualized dose reduction techniques were utilized for this examination: 1. Automated exposure control 2. Adjustment of the mA and/or kV according to patient size 3. Use of iterative reconstruction technique. Technique: Intravenous contrast was given. No oral contrast per request. Comparison with March 04, 2018 Mild bronchial wall thickening in the right lower lobe, with adjacent interstitial opacities, unchanged, compatible with chronic bronchiectasis. Mild coronary artery calcification. Low-density or biliary ductal dilatation in the inferior right lobe of liver is again identified and appears unchanged. No new liver lesion is seen. Spleen not enlarged. Pancreas unremarkable. No adrenal mass. Kidneys demonstrate symmetric enhancement without focal lesion. No hydronephrosis. Gallbladder surgically absent. No significant lymph node enlargement. No significant small bowel distention. No acute colitis. Postsurgical changes are identified at the colon. Surgical clips identified in the right lower quadrant posteriorly again seen. No evidence of ascites. No evidence of pneumoperitoneum. Urinary bladder is incompletely distended appears grossly unremarkable. No evidence of pelvic mass. Vertebral body height and alignment is stable since prior study. No evidence of destructive bone lesion. Mild degenerative changes at the skeletal pelvis. IMPRESSION: No acute findings are identified in the abdomen or pelvis. Electronically signed by: Aguilar Griffith MD (10/01/2018 3:57 PM) [facility]
[2018-10-01] MEDS ORDERED: DICY10CA3 PO (17:02)
[2018-11-28] MEDS ORDERED: INSU100C SQ (14:07)
[2018-11-28] MEDS ORDERED: INSU100V13 SQ ×2 (14:07)
[2018-11-30] MEDS ORDERED: TICA90TA PO (10:22)
== END 2018-10-01 17:26 | disposition home or self-care (01) ==
LOC: ER 13:20
DX: R10.84 Generalized abdominal pain (principal); R11.0 Nausea; I25.10 Atherosclerotic heart disease of native coronary artery without angina pectoris; E78.00 Pure hypercholesterolemia, unspecified; I10 Essential (primary) hypertension; E11.39 Type 2 diabetes mellitus with other diabetic ophthalmic complication; H42 Glaucoma in diseases classified elsewhere; Z90.89 Acquired absence of other organs; Z90.49 Acquired absence of other specified parts of digestive tract; Z88.6 Allergy status to analgesic agent
CPT/HCPCS: 36415; 74177; 80053; 81001; 83605; 83690; 83735; 84484; 85025; 87086; 93005; 96374; 96375; 99284; J2405; J3010; J7040; Q9967; 96361

== ENCOUNTER → 2019-04-09 | Outpatient (CLI) | payer MEDICARE ==
[2019-02-02 10:59] VITALS: BP 141/77
[~2019-04-09] MED LIST changes: +DICY10CA3 PO; +FAMO20TA5 PO; +INSU100C SQ; +INSU100V13 SQ; +LIPITOR80 MG PO; +LISI1TAB23 PO; -LISI1TAB3 PO
--- NOTE | 2019-04-10 18:25 | RAD ---
DATE: 04/09/2019 EXAM: MAMMO RUDY SCREENING BILATERAL HISTORY: Routine screening COMPARISON: 07/04/2011, 08/15/2016, 01/10/2018 mammographic exams This study was interpreted with the benefit of Computerized Aided Detection (CAD). Breast Density: FATTY The breast parenchyma is primarily fatty replaced. Breast parenchyma level density A. FINDINGS: Coarse calcifications are present without significant change. No new mass or distortion. No new calcification clusters. IMPRESSION: Stable BI-RADS CATEGORY: 2 BENIGN FINDING(S) RECOMMENDED FOLLOW-UP: 12M 12 MONTH FOLLOW-UP PQRS compliance statement: Patient information was entered into a reminder system with a target due date in one year for the next mammogram. Mammography is a sensitive method for finding small breast cancers, but it does not detect them all and is not a substitute for careful clinical examination. A negative mammogram does not negate a clinically suspicious finding and should not result in delay in biopsying a clinically suspicious abnormality. "Our facility is accredited by the [employer] Mammography Program."
== END | disposition home or self-care (01) ==
LOC: MAMMO 07:54
PROVIDERS: ATTEND Family Medicine
DX: Z12.31 Encounter for screening mammogram for malignant neoplasm of breast (principal); N64.89 Other specified disorders of breast
CPT/HCPCS: 77063; 77067

== ENCOUNTER 2020-04-02 07:07 | Emergency (ER) | payer MEDICARE ==
[~2020-04-02] VITALS: Ht 160 cm; Wt 90.0 kg
[~2020-04-02 07:07] MED LIST changes: +LISI10TA2 PO; +LUBI24CA7 PO; +MAG30ORA2 PO; +NAPR-695 PO; +PANT40TA77 PO
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
[2020-04-02 07:51] LABS: BILIRUBIN,URINE NEGATIVE (NEG); CLARITY,URINE CLEAR; COLOR,URINE YELLOW; NITRITE,URINE NEGATIVE (NEG); PH,URINE 5.5 (<5.0-8.0); PROTEIN,URINE 30 mg/dL (NEG-TRACE); UROBILINOGEN,URINE 0.2 mg/dL (0.2 mg/dL)
[2020-04-02] MEDS ORDERED: IV NORMAL SALINE 1000ML BAG 1,000 ML IV SCH (07:53)
[2020-04-02] MEDS ORDERED: ONDANSETRON PF 4 MG/2 ML VIAL. IV ONE (08:00)
[2020-04-02 08:05] LABS: BASO % 0 % (0-3); EOS # 0.1 x10^3/uL (0.0-0.7); EOS % 1 % (0-3); HEMATOCRIT 36.8 % (36.0-47.0); HEMOGLOBIN 12.2 g/dL (12.0-15.5); LYMPH # 2.2 x10^3/uL (1.0-4.8); LYMPH % 26 % (24-48); MEAN CORPUSCULAR HEMOGLOBIN 30 pg (25-35); MEAN CORPUSCULAR HGB CONC 33 g/dL (31-37); MEAN CORPUSCULAR VOLUME 91 fL (79-100); MONO # 0.6 x10^3/uL (0.0-1.1); MONO % 7 % (0-9); NEUT # 5.7 x10^3/uL (1.8-7.7); NEUT % 66 % (31-73); PLATELET COUNT 253 x10^3/uL (140-400); RED BLOOD COUNT 4.05 x10^6/uL (3.50-5.40); RED CELL DISTRIBUTION WIDTH 14.4 % (11.5-14.5); WHITE BLOOD COUNT 8.6 x10^3/uL (4.0-11.0)
[2020-04-02] MEDS: fentaNYL PF VIAL 100 MCG/2 ML VIAL IV PRN ×2 (08:06→09:43)
[2020-04-02 08:10] LABS: BACTERIA,URINE MANY /HPF (0-FEW); SQUAMOUS EPITHELIAL CELL,UR MANY /LPF; WBC,URINE 20-40 /HPF (0-4)
[2020-04-02 08:17] LABS: CALCIUM 8.9 mg/dL (8.5-10.1); CREATININE 0.9 mg/dL (0.6-1.0); GFR 76.8; POTASSIUM 3.5 mmol/L (3.5-5.1)
[2020-04-02 08:22] LABS: ALBUMIN 3.2 g/dL (3.4-5.0); ALBUMIN/GLOBULIN RATIO 0.7 (1.0-1.7); TOTAL BILIRUBIN 0.4 mg/dL (0.2-1.0); TOTAL PROTEIN 7.8 g/dL (6.4-8.2)
[2020-04-02] MEDS ORDERED: IOHEXOL 300 MG/ML 100ML VIAL. IV ONE (08:45)
[2020-04-02] MEDS ORDERED: CONTRAST GIVEN. MC PRN (08:45)
--- NOTE | 2020-04-02 09:03 | RAD ---
Examination: CT ABD PELV W/ IV CONTRST ONLY History: abd pain / Spl. Instructions: INJ 75ML OMNI 300 / History: Comparison/Correlation: 06/10/2019 CT abdomen and pelvis with contrast Findings: Axial images of the abdomen were obtained following IV contrast. Sagittal and coronal reformatted images were Discoid atelectasis in the lung bases noted. Right posterior subcapsular low-attenuation is stable. Biliary ductal dilatation seen in this region. Correlate with surgical history. No new liver lesion. Spleen, pancreas, adrenal glands, and kidneys are normal. No enlarged abdominal or pelvic lymph nodes. Surgical clips of the right iliac fossa. Suture material involving the hepatic flexure noted. Bilateral hydronephrosis. No extraluminal gas. No bowel obstruction. No inflammatory findings. Urinary bladder is unremarkable. No ascites or pelvic free fluid. No extraluminal gas. Bony structures are unremarkable. Impression: No acute processes. No suspicious finding. PQRS Compliance Statement: One or more of the following individualized dose reduction techniques were utilized for this examination: 1. Automated exposure control 2. Adjustment of the mA and/or kV according to patient size 3. Use of iterative reconstruction technique Electronically signed by: Lupillo Jaffe MD (04/02/2020 9:00 AM) [email or web address]
[2020-04-02] MEDS ORDERED: NITR100C62 PO (09:36)
[2020-04-02 10:14] VITALS: BP 172/76
== END 2020-04-02 10:44 | disposition home or self-care (01) ==
LOC: ER 07:07
DX: N30.00 Acute cystitis without hematuria (principal); E11.9 Type 2 diabetes mellitus without complications; E78.00 Pure hypercholesterolemia, unspecified; I10 Essential (primary) hypertension; I25.10 Atherosclerotic heart disease of native coronary artery without angina pectoris; Z90.89 Acquired absence of other organs; Z90.49 Acquired absence of other specified parts of digestive tract; Z95.5 Presence of coronary angioplasty implant and graft; Z88.8 Allergy status to other drugs, medicaments and biological substances
CPT/HCPCS: 36415; 74177; 80053; 81001; 83690; 85025; 87086; 96361; 96374; 96375; 96376; 99285; J2405; J3010; J7030; Q9967

== ENCOUNTER → 2020-04-12 | Outpatient (CLI) | payer MEDICARE ==
[2020-04-02 10:14] VITALS: BP 172/76
[~2020-04-12] MED LIST changes: +NITR100C62 PO
--- NOTE | 2020-04-12 18:52 | RAD ---
EXAMINATION: Bilateral screening mammogram, 04/12/2020 1:00 PM CLINICAL INDICATION: 64-year-old woman presenting for screening mammogram. COMPARISON: 04/09/2019 TECHNIQUE: Digital bilateral full-field CC and MLO views, and CC and MLO tomosynthesis views of the breasts were obtained. CAD was utilized. FINDINGS: The breasts contain scattered areas of fibroglandular density.. There is an increasing indeterminate group of calcifications in the outer right breast approximately 3:00, posterior depth. No suspicious mass or architectural distortion. IMPRESSION: 1. Indeterminate right breast calcifications. Recommend spot magnification CC and ML views. 2. BI-RADS 0-incomplete. Need additional imaging evaluation. A results and recommendation letter will be sent to the patient. Electronically signed by: Kamila Underwood MD (04/12/2020 6:50 PM) [id number]
== END | disposition home or self-care (01) ==
LOC: MAMMO 12:04
PROVIDERS: ATTEND Family Medicine
DX: Z12.31 Encounter for screening mammogram for malignant neoplasm of breast (principal); N64.89 Other specified disorders of breast
CPT/HCPCS: 77063; 77067

== ENCOUNTER 2020-04-17 21:27 | Emergency (ER) | payer MEDICARE ==
[~2020-04-17] VITALS: Ht 160 cm; Wt 89.5 kg
[2020-04-17 22:23] LABS: BARBITURATES NEG (NEG); BENZODIAZEPINES POS (NEG); CANNABINOIDS NEG (NEG); COCAINE NEG (NEG); METHADONE NEG (NEG); OPIATES NEG (NEG); PHENCYCLIDINE NEG (NEG)
[2020-04-17 22:25] LABS: AMPHETAMINE/METHAMPHETAMINE NEG (NEG)
[2020-04-17 22:35] LABS: BASO % 0 % (0-3); EOS # 0.1 x10^3/uL (0.0-0.7); EOS % 1 % (0-3); HEMATOCRIT 38.1 % (36.0-47.0); HEMOGLOBIN 12.6 g/dL (12.0-15.5); LYMPH # 2.3 x10^3/uL (1.0-4.8); LYMPH % 29 % (24-48); MEAN CORPUSCULAR HEMOGLOBIN 30 pg (25-35); MEAN CORPUSCULAR HGB CONC 33 g/dL (31-37); MEAN CORPUSCULAR VOLUME 91 fL (79-100); MONO # 0.6 x10^3/uL (0.0-1.1); MONO % 8 % (0-9); NEUT # 4.9 x10^3/uL (1.8-7.7); NEUT % 62 % (31-73); PLATELET COUNT 267 x10^3/uL (140-400); RED BLOOD COUNT 4.19 x10^6/uL (3.50-5.40); RED CELL DISTRIBUTION WIDTH 14.5 % (11.5-14.5); WHITE BLOOD COUNT 7.8 x10^3/uL (4.0-11.0)
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
[2020-04-17 22:43] LABS: CALCIUM 9.2 mg/dL (8.5-10.1); POTASSIUM 3.7 mmol/L (3.5-5.1)
[2020-04-17 22:48] LABS: ALBUMIN 3.4 g/dL (3.4-5.0); ALBUMIN/GLOBULIN RATIO 0.7 (1.0-1.7); MAGNESIUM 1.9 mg/dL (1.8-2.4); TOTAL BILIRUBIN 0.2 mg/dL (0.2-1.0)
[2020-04-17] MEDS ORDERED: fentaNYL PF VIAL 100 MCG/2 ML VIAL IV ONE (23:00)
[2020-04-17] MEDS ORDERED: IV NORMAL SALINE 1000ML BAG 1,000 ML IV ONE (23:00)
[2020-04-17] MEDS ORDERED: IOHEXOL 300 MG/ML 100ML VIAL. IV ONE (23:00)
[2020-04-17] MEDS ORDERED: CONTRAST GIVEN. MC PRN (23:15)
--- NOTE | 2020-04-17 23:16 | RAD ---
Exam: CT of abdomen and pelvis with contrast INDICATION: Pain, concern for obstruction TECHNIQUE: Sequential axial images through the abdomen and pelvis obtained following the administration of 70 mL of Isovue-370 IV contrast. Sagittal and coronal reformatted images were reconstructed from the axial data and reviewed. Comparisons: 04/02/2020 FINDINGS: Heart size is normal. No pericardial effusion. Strandy opacities at the dependent portion lungs likely representing atelectasis. No pleural effusion. Liver, spleen, pancreas and adrenals are unremarkable. Gallbladder surgically absent. Kidneys demonstrate symmetric enhancement. There is left-sided hydroureter with stranding surrounding the course of the left ureter. No obstructing stone or lesion is not identified. Nonobstructing 2 mm calculus lower pole of the left kidney. Bladder is decompressed not well evaluated. Uterus is absent. No abnormal adnexal mass. Large and small bowel are unremarkable. Appendix is identified. No free intra-abdominal air or fluid. No obstruction. Abdominal aorta has a normal course and caliber. 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 No enlarged abdominal lymph nodes are identified. No suspicious osseous lesions or acute fractures. IMPRESSION: Left-sided hydroureter with ureteral wall enhancement and adjacent fat stranding. Findings could relate to ascending infection. Correlate with urinalysis. Obstructing stone or lesion is not identified. Exposure: One or more of the following in the visualized dose reduction techniques were utilized for this examination: 1. Automated exposure control 2. Adjustment of the MA and/or KV according to patient size 3. Use of iterative of reconstructive technique Electronically signed by: Clemente Sapp MD (04/17/2020 11:13 PM) [id number]
[2020-04-18 00:10] LABS: BILIRUBIN,URINE NEGATIVE (NEG); CLARITY,URINE CLEAR; COLOR,URINE YELLOW; NITRITE,URINE NEGATIVE (NEG); PROTEIN,URINE 100 mg/dL (NEG-TRACE); UROBILINOGEN,URINE 0.2 mg/dL (0.2 mg/dL)
[2020-04-18 00:27] LABS: BACTERIA,URINE MANY /HPF (0-FEW); WBC,URINE TNTC /HPF (0-4)
[2020-04-18] MEDS ORDERED: ACET1TAB33 PO (00:53)
[2020-04-18] MEDS ORDERED: CEPH-264 PO (00:53)
[2020-04-18 00:59] VITALS: BP 169/77
[2020-04-18] MEDS ORDERED: cefTRIAXone IV Push 1 GM VIAL. IVP ONE (01:00)
[2020-04-18] MEDS ORDERED: fentaNYL PF VIAL 100 MCG/2 ML VIAL IV ONE (01:00)
== END 2020-04-18 01:00 | disposition home or self-care (01) ==
LOC: ER 21:27
DX: N30.01 Acute cystitis with hematuria (principal); R10.84 Generalized abdominal pain; R19.7 Diarrhea, unspecified; E11.9 Type 2 diabetes mellitus without complications; E78.00 Pure hypercholesterolemia, unspecified; I11.9 Hypertensive heart disease without heart failure; Z90.89 Acquired absence of other organs; Z90.49 Acquired absence of other specified parts of digestive tract; Z98.890 Other specified postprocedural states; Z88.6 Allergy status to analgesic agent
CPT/HCPCS: 36415; 74177; 80053; 80307; 81001; 83690; 83735; 85025; 87086; 96361; 96374; 96375; 96376; 99285; J0696; J3010; J7030; Q9967

== ENCOUNTER → 2020-04-26 | Outpatient (CLI) | payer MEDICARE ==
[2020-04-18 00:59] VITALS: BP 169/77
[~2020-04-26] MED LIST changes: +ACET1TAB33 PO
--- NOTE | 2020-04-26 15:54 | RAD ---
EXAMINATION: DIGITAL DIAGNOSTIC RT, 04/26/2020 1:30 PM CLINICAL INDICATION: 64-year-old woman recalled from screening mammogram for calcifications in the right breast. COMPARISON: Screening mammogram 04/12/2020, 04/09/2019, 01/10/2018 FINDINGS: The breast contains scattered areas of fibroglandular density. On spot magnification views, the calcifications in question have a coarse heterogeneous appearance. These have been stable since at least 2017. There are no findings suspicious for malignancy. IMPRESSION: 1. No mammographic evidence of malignancy in the right breast. Benign right breast calcifications, stable since at least 2017. 2. BI-RADS 2-benign. 3. Routine annual screening mammogram is recommended in 1 year. The patient will receive a reminder letter by mail when she is due for her next exam. Electronically signed by: Kamila Underwood MD (04/26/2020 3:51 PM) [email or web address]
== END ==
LOC: MAMMO 13:06
PROVIDERS: ATTEND Family Medicine
DX: R92.8 Other abnormal and inconclusive findings on diagnostic imaging of breast (principal)
CPT/HCPCS: 77065

== ENCOUNTER 2020-07-08 17:45 | Inpatient (IN) | payer MEDICARE ==
[~2020-07-08] VITALS: Ht 160 cm; Wt 91.5 kg
[~2020-07-08 17:45] MED LIST changes: -LISI-338 PO; +LISI-517 PO; +LISI10TA16 PO; -LISI10TA2 PO; -POLY17PO28 PO; +POLY17PO52 PO
[2020-07-08 18:15] LABS: BASO % 0 % (0-3); EOS # 0.1 x10^3/uL (0.0-0.7); EOS % 1 % (0-3); HEMATOCRIT 39.2 % (36.0-47.0); HEMOGLOBIN 12.9 g/dL (12.0-15.5); LYMPH # 2.2 x10^3/uL (1.0-4.8); LYMPH % 21 % (24-48); MEAN CORPUSCULAR HEMOGLOBIN 30 pg (25-35); MEAN CORPUSCULAR HGB CONC 33 g/dL (31-37); MEAN CORPUSCULAR VOLUME 90 fL (79-100); MONO # 0.7 x10^3/uL (0.0-1.1); MONO % 6 % (0-9); NEUT # 7.3 x10^3/uL (1.8-7.7); NEUT % 71 % (31-73); PLATELET COUNT 260 x10^3/uL (140-400); RED BLOOD COUNT 4.34 x10^6/uL (3.50-5.40); RED CELL DISTRIBUTION WIDTH 14.8 % (11.5-14.5); WHITE BLOOD COUNT 10.3 x10^3/uL (4.0-11.0)
[2020-07-08] MEDS ORDERED: fentaNYL PF VIAL 100 MCG/2 ML VIAL IVP ONE (18:15)
[2020-07-08 18:18] LABS: BILIRUBIN,URINE NEGATIVE (NEG); CLARITY,URINE CLEAR; COLOR,URINE YELLOW; NITRITE,URINE NEGATIVE (NEG); PROTEIN,URINE NEGATIVE (NEG-TRACE); UROBILINOGEN,URINE 0.2 mg/dL (0.2 mg/dL)
[2020-07-08 18:24] LABS: BARBITURATES NEG (NEG); BENZODIAZEPINES NEG (NEG); CANNABINOIDS NEG (NEG); COCAINE NEG (NEG); METHADONE NEG (NEG); OPIATES NEG (NEG); PHENCYCLIDINE NEG (NEG)
[2020-07-08 18:25] LABS: BACTERIA,URINE MODERATE /HPF (0-FEW)
[2020-07-08 18:26] LABS: RBC,URINE RARE /HPF (0-2)
[2020-07-08 18:32] LABS: AMPHETAMINE/METHAMPHETAMINE NEG (NEG)
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
[2020-07-08 18:43] LABS: CALCIUM 9.2 mg/dL (8.5-10.1); GFR 67.8
[2020-07-08 18:49] LABS: ALBUMIN 3.7 g/dL (3.4-5.0); ALBUMIN/GLOBULIN RATIO 0.8 (1.0-1.7); TOTAL BILIRUBIN 0.4 mg/dL (0.2-1.0); TOTAL PROTEIN 8.6 g/dL (6.4-8.2)
[2020-07-08] MEDS ORDERED: cefTRIAXone IV Push 1 GM VIAL. IVP ONE (19:00)
[2020-07-08] MEDS ORDERED: IOHEXOL 300 MG/ML 100ML VIAL. IV ONE (19:30)
[2020-07-08] MEDS ORDERED: CONTRAST GIVEN. MC PRN (19:30)
--- NOTE | 2020-07-08 19:42 | RAD ---
Examination: CT of the abdomen pelvis with IV contrast HISTORY: History of abdominal pain, nausea COMPARISON: 04/02/2020 TECHNIQUE: Axial CT images of the abdomen pelvis were performed with IV contrast. Coronal and sagitta l reformats are performed Exposure: One or more of the following individualized dose reduction techniques were utilized for thi s examination: 1. Automated exposure control 2. Adjustment of the mA and/or kV according to patient size 3. Use of iterative reconstruction technique FINDINGS: Linear bibasilar lung atelectasis or infiltrates. No evidence of free air identified in the abdomen. Small hypodensity identified in the right lobe of the liver measuring 2.3 cm similar to prior exam. T he spleen, adrenals grossly appears unremarkable. The stomach is mildly distended. The visualized pancreas grossly appears unremarkable. Mild dilated s mall bowel loops identified in the lower abdomen with surrounding moderate inflammatory fat stranding . Fluid distended small bowel loops identified. The bilateral kidneys enhance symmetrically. Surgical changes identified in the colon.. Urinary bladder is mildly distended The bilateral kidneys enhance symmetrically. Punctate 1 mm calculus left kidney. Mild degenerative changes lumbar spine. IMPRESSION: 1. Moderate inflammatory stranding identified about the small bowel loops in the lower abdomen likely enteritis with mild dilated fluid distended small bowel loops could be secondary to ileus or partial obstruction. Electronically signed by: Ck Palacio MD (07/08/2020 7:40 PM) [id number]
[2020-07-08] MEDS ORDERED: ONDANSETRON PF 4 MG/2 ML VIAL. IV PRN (20:15)
[2020-07-08] MEDS ORDERED: IV NORMAL SALINE 1000ML BAG 1,000 ML IV ONE (20:30)
[2020-07-08] MEDS: fentaNYL PF VIAL 100 MCG/2 ML VIAL IV PRN ×2 (20:50→22:50)
[2020-07-08 21:45] VITALS: BP 137/69
[2020-07-08] MEDS: IV NORMAL SALINE 1000ML BAG 1,000 ML IV SCH (22:50)
--- NOTE | 2020-07-08 23:00 | NUR ---
ADMIT NOTE The patient, MARIA FERNANDA TODD, 65 y/o, F admitted by HUMPHREY NICKERSON III, DO, was given written information regarding hospital policies, unit procedures and contact persons. Patient orientated to room, plan of care discussed, and admit packet reviewed. Patient's belongings checked and allergies/home medications verified. Patient now in bed, bed in lowest/locked position, and call light within reach; no other needs voiced at this time.
[2020-07-08] MEDS ORDERED: ALPR0.5T6 PO (23:13)
[2020-07-08] MEDS ORDERED: SERT-267 PO (23:13)
[2020-07-08 23:18] VITALS: BP 113/56
[2020-07-09] MEDS: fentaNYL PF VIAL 100 MCG/2 ML VIAL IV PRN ×2 (02:24→13:47)
[2020-07-09 03:32] VITALS: BP 110/55
[2020-07-09 07:00] VITALS: BP 107/53
[2020-07-09] MEDS: IV NORMAL SALINE 1000ML BAG 1,000 ML IV SCH ×2 (08:41→17:48)
[2020-07-09] MEDS: HYDROcodone/APAP 5/325MG 1 TAB TABLET PO PRN (08:52)
--- NOTE | 2020-07-09 09:09 | PDOC2 ---
SAGE POTTER DESKTOP TECHNICIAN 07/09/20 0909: CONSULT Date of Consult Date of Consult DATE: 07/09/20 TIME: 09:05 Reason for Consult Reason for Consult: sbo Referring Physician Referring Physician: ER Identification/Chief Complaint Chief Complaint abdominal pain Source Source: Chart review, Patient History of Present Illness Reason for Visit: Acute onset of abdominal pain and diarrhea. Had 2 loose stools last night. No fevers or chills. + associated nausea. Past Medical History Cardiovascular: CAD, HTN, Hyperlipidemia Pulmonary: No pertinent hx CENTRAL NERVOUS SYSTEM: Periperal neuropathy GI: Other Heme/Onc: No pertinent hx Hepatobiliary: No pertinent hx Psych: No pertinent hx Musculoskeletal: Osteoarthritis Rheumatologic: Fibromyalgia Infectious disease: No pertinent hx Renal/: No pertinent hx Endocrine: Diabetes Past Surgical History Past Surgical History: Appendectomy, Cholecystectomy, Hysterectomy, Other Family History Family History: Diabetes, Heart Disease, Hypertension Social History ALCOHOL: none Drugs: None Lives: Alone Current Problem List Problem List Problems Medical Problems: (1) Ileus Status: Acute Current Medications Current Medications Current Medications Fentanyl Citrate (Fentanyl 2ml Vial) 50 mcg 1X ONCE IVP Last administered on 07/08/20at 18:15; Start 07/08/20 at 18:15; Stop 07/08/20 at 18:16; Status DC Ceftriaxone Sodium (Rocephin) 1 gm 1X ONCE IVP Last administered on 07/08/20at 19:00; Start 07/08/20 at 19:00; Stop 07/08/20 at 19:01; Status DC Iohexol (Omnipaque 300 Mg/ml) 75 ml 1X ONCE IV Last administered on 07/08/20at 19:35; Start 07/08/20 at 19:30; Stop 07/08/20 at 19:31; Status DC Info (CONTRAST GIVEN -- Rx MONITORING) 1 each PRN DAILY PRN MC SEE COMMENTS; Start 07/08/20 at 19:30; Stop 07/10/20 at 19:29 Sodium Chloride 1,000 ml @ 1,000 mls/hr 1X ONCE IV Last administered on 07/08/20at 20:15; Start 07/08/20 at 20:30; Stop 07/08/20 at 21:29; Status DC Ondansetron HCl (Zofran) 4 mg PRN Q8HRS PRN IV NAUSEA/VOMITING; Start 07/08/20 at 20:15; Stop 07/09/20 at 20:14 Fentanyl Citrate (Fentanyl 2ml Vial) 50 mcg PRN Q1HR PRN IV PAIN Last administered on 07/09/20at 02:24; Start 07/08/20 at 20:15; Stop 07/09/20 at 20:14 Sodium Chloride 1,000 ml @ 100 mls/hr Q10H IV Last administered on 07/09/20at 08:41; Start 07/08/20 at 22:00; Stop 07/09/20 at 21:59 Ceftriaxone Sodium (Rocephin) 1 gm Q24H IVP ; Start 07/09/20 at 18:00 Acetaminophen/ Hydrocodone Bitart (Lortab 5/325) 1 tab PRN Q4HRS PRN PO PAIN Last administered on 07/09/20at 08:52; Start 07/09/20 at 08:45 Active Scripts Active Pantoprazole Sodium (Pantoprazole Sodium) 40 Mg Tablet.dr 40 Mg PO DAILYAC Mag-Al Plus Xs Suspension (Mag Hydrox/Al Hydrox/Simeth) 30 Ml Oral.susp 30 Ml PO PRN Q2HR PRN 7 Days Polyethylene Glycol 3350 17 Gm Powd.pack 17 Gm PO DAILY 30 Days Reported Sertraline Hcl 50 Mg Tablet 1 Tab PO DAILY Alprazolam 0.5 Mg Tablet 1 Tab PO PRN BID PRN Naproxen 375 Mg Tablet 375 Mg PO BID Lisinopril 10 Mg Tablet 10 Mg PO DAILY Metoprolol Tartrate 25 Mg Tablet 1 Tab PO BID Lipitor (Atorvastatin Calcium) 80 Mg Tablet 1 Tab PO DAILY Levemir (Insulin Detemir) 100 Unit/1 Ml Vial 40 Unit SQ HS Levemir (Insulin Detemir) 100 Unit/1 Ml Vial 22 Unit SQ DAILY Humalog (Insulin Lispro) 100 Unit/1 Ml Cartridge 15 Unit SQ TIDWMEALS Aspirin 81 Mg Tab.chew 1 Tab PO DAILY Allergies Allergies: Coded Allergies: ibuprofen (Verified Allergy, Intermediate, hyperventilate, vomit, 05/10/18) ROS General: YES: Appetite (loss); No: Chills PSYCHOLOGICAL ROS: No: Anxiety, Depression Eyes: No Blurry vision, No Double vision HEENT: No: Heacaches, Sore Throat Hematological and Lymphatic: No: Bleeding Problems, Blood Clots Respiratory: No: Cough, Shortness of breath Cardiovascular: No Chest Pain, No Palpitations Gastrointestinal: Yes Other (see hpi) Genitourinary: No Dysuria, No Retention Musculoskeletal: No Joint Pain, No Muscle Pain Neurological: No Impaired Coord/balance, No Numbness/Tingling Skin: No Pruritus, No Rash Physical Exam General: Alert, Oriented X3, Cooperative HEENT: Atraumatic, PERRLA Lungs: Clear to auscultation, Normal air movement Heart: Regular rate, Normal S1, Normal S2 Abdomen: Soft, Other (TTP upper abdomen, multiple abdominal scars) Extremities: No clubbing, No cyanosis Skin: No rashes, No breakdown Neuro: Normal gait, Normal speech Psych/Mental Status: Mental status NL, Mood NL MUSCULOSKELETAL: No deformity, No swelling Vitals VITALS Vital Signs Date Time Temp Pulse Resp B/P (MAP) Pulse Ox O2 Delivery O2 Flow Rate FiO2 07/09/20 08:52 Room Air 07/09/20 03:32 98.9 70 18 110/55 (73) 95 98.9 Labs Labs Laboratory Tests Test 07/08/20 18:00 07/08/20 20:17 07/09/20 00:05 07/09/20 08:10 White Blood Count 10.3 x10^3/uL (4.0-11.0) Red Blood Count 4.34 x10^6/uL (3.50-5.40) Hemoglobin 12.9 g/dL (12.0-15.5) Hematocrit 39.2 % (36.0-47.0) Mean Corpuscular Volume 90 fL (79-100) Mean Corpuscular Hemoglobin 30 pg (25-35) Mean Corpuscular Hemoglobin Concent 33 g/dL (31-37) Red Cell Distribution Width 14.8 % (11.5-14.5) Platelet Count 260 x10^3/uL (140-400) Neutrophils (%) (Auto) 71 % (31-73) Lymphocytes (%) (Auto) 21 % (24-48) Monocytes (%) (Auto) 6 % (0-9) Eosinophils (%) (Auto) 1 % (0-3) Basophils (%) (Auto) 0 % (0-3) Neutrophils # (Auto) 7.3 x10^3/uL (1.8-7.7) Lymphocytes # (Auto) 2.2 x10^3/uL (1.0-4.8) Monocytes # (Auto) 0.7 x10^3/uL (0.0-1.1) Eosinophils # (Auto) 0.1 x10^3/uL (0.0-0.7) Basophils # (Auto) 0.0 x10^3/uL (0.0-0.2) Urine Collection Type Unknown Urine Color Yellow Urine Clarity Clear Urine pH 6.0 (<5.0-8.0) Urine Specific [place] 1.010 (1.000-1.030) Urine Protein Negative mg/dL (NEG-TRACE) Urine Glucose (UA) Negative mg/dL (NEG) Urine Ketones (Stick) Negative mg/dL (NEG) Urine Blood Trace (NEG) Urine Nitrite Negative (NEG) Urine Bilirubin Negative (NEG) Urine Urobilinogen Dipstick 0.2 mg/dL (0.2 mg/dL) Urine Leukocyte Esterase Moderate (NEG) Urine RBC Rare /HPF (0-2) Urine WBC 11-20 /HPF (0-4) Urine Squamous Epithelial Cells Many /LPF Urine Bacteria Moderate /HPF (0-FEW) Sodium Level 140 mmol/L (136-145) Potassium Level 4.0 mmol/L (3.5-5.1) Chloride Level 102 mmol/L (98-107) Carbon Dioxide Level 30 mmol/L (21-32) Anion Gap 8 (6-14) Blood Urea Nitrogen 14 mg/dL (7-20) Creatinine 1.0 mg/dL (0.6-1.0) Estimated GFR (Cockcroft-Gault) 67.8 BUN/Creatinine Ratio 14 (6-20) Glucose Level 229 mg/dL (70-99) Lactic Acid Level 2.5 mmol/L (0.4-2.0) 1.1 mmol/L (0.4-2.0) Calcium Level 9.2 mg/dL (8.5-10.1) Total Bilirubin 0.4 mg/dL (0.2-1.0) Aspartate Amino Transf (AST/SGOT) 22 U/L (15-37) Alanine Aminotransferase (ALT/SGPT) 28 U/L (14-59) Alkaline Phosphatase 94 U/L (46-116) Troponin I Quantitative 0.031 ng/mL (0.000-0.055) Total Protein 8.6 g/dL (6.4-8.2) Albumin 3.7 g/dL (3.4-5.0) Albumin/Globulin Ratio 0.8 (1.0-1.7) Lipase 78 U/L (73-393) Urine Opiates Screen Neg (NEG) Urine Methadone Screen Neg (NEG) Urine Barbiturates Neg (NEG) Urine Phencyclidine Screen Neg (NEG) Urine Amphetamine/Methamphetamine Neg (NEG) Urine Benzodiazepines Screen Neg (NEG) Urine Cocaine Screen Neg (NEG) Urine Cannabinoids Screen Neg (NEG) Urine Ethyl Alcohol Neg (NEG) SARS-CoV-2 Antigen (Rapid) Negative (NEGATIVE) Glucose (Fingerstick) 190 mg/dL (70-99) Laboratory Tests Test 07/08/20 18:00 07/08/20 20:17 07/09/20 00:05 07/09/20 08:10 White Blood Count 10.3 x10^3/uL (4.0-11.0) Red Blood Count 4.34 x10^6/uL (3.50-5.40) Hemoglobin 12.9 g/dL (12.0-15.5) Hematocrit 39.2 % (36.0-47.0) Mean Corpuscular Volume 90 fL (79-100) Mean Corpuscular Hemoglobin 30 pg (25-35) Mean Corpuscular Hemoglobin Concent 33 g/dL (31-37) Red Cell Distribution Width 14.8 % (11.5-14.5) Platelet Count 260 x10^3/uL (140-400) Neutrophils (%) (Auto) 71 % (31-73) Lymphocytes (%) (Auto) 21 % (24-48) Monocytes (%) (Auto) 6 % (0-9) Eosinophils (%) (Auto) 1 % (0-3) Basophils (%) (Auto) 0 % (0-3) Neutrophils # (Auto) 7.3 x10^3/uL (1.8-7.7) Lymphocytes # (Auto) 2.2 x10^3/uL (1.0-4.8) Monocytes # (Auto) 0.7 x10^3/uL (0.0-1.1) Eosinophils # (Auto) 0.1 x10^3/uL (0.0-0.7) Basophils # (Auto) 0.0 x10^3/uL (0.0-0.2) Urine Collection Type Unknown Urine Color Yellow Urine Clarity Clear Urine pH 6.0 (<5.0-8.0) Urine Specific [place] 1.010 (1.000-1.030) Urine Protein Negative mg/dL (NEG-TRACE) Urine Glucose (UA) Negative mg/dL (NEG) Urine Ketones (Stick) Negative mg/dL (NEG) Urine Blood Trace (NEG) Urine Nitrite Negative (NEG) Urine Bilirubin Negative (NEG) Urine Urobilinogen Dipstick 0.2 mg/dL (0.2 mg/dL) Urine Leukocyte Esterase Moderate (NEG) Urine RBC Rare /HPF (0-2) Urine WBC 11-20 /HPF (0-4) Urine Squamous Epithelial Cells Many /LPF Urine Bacteria Moderate /HPF (0-FEW) Sodium Level 140 mmol/L (136-145) Potassium Level 4.0 mmol/L (3.5-5.1) Chloride Level 102 mmol/L (98-107) Carbon Dioxide Level 30 mmol/L (21-32) Anion Gap 8 (6-14) Blood Urea Nitrogen 14 mg/dL (7-20) Creatinine 1.0 mg/dL (0.6-1.0) Estimated GFR (Cockcroft-Gault) 67.8 BUN/Creatinine Ratio 14 (6-20) Glucose Level 229 mg/dL (70-99) Lactic Acid Level 2.5 mmol/L (0.4-2.0) 1.1 mmol/L (0.4-2.0) Calcium Level 9.2 mg/dL (8.5-10.1) Total Bilirubin 0.4 mg/dL (0.2-1.0) Aspartate Amino Transf (AST/SGOT) 22 U/L (15-37) Alanine Aminotransferase (ALT/SGPT) 28 U/L (14-59) Alkaline Phosphatase 94 U/L (46-116) Troponin I Quantitative 0.031 ng/mL (0.000-0.055) Total Protein 8.6 g/dL (6.4-8.2) Albumin 3.7 g/dL (3.4-5.0) Albumin/Globulin Ratio 0.8 (1.0-1.7) Lipase 78 U/L (73-393) Urine Opiates Screen Neg (NEG) Urine Methadone Screen Neg (NEG) Urine Barbiturates Neg (NEG) Urine Phencyclidine Screen Neg (NEG) Urine Amphetamine/Methamphetamine Neg (NEG) Urine Benzodiazepines Screen Neg (NEG) Urine Cocaine Screen Neg (NEG) Urine Cannabinoids Screen Neg (NEG) Urine Ethyl Alcohol Neg (NEG) SARS-CoV-2 Antigen (Rapid) Negative (NEGATIVE) Glucose (Fingerstick) 190 mg/dL (70-99) Assessment/Plan Assessment/Plan SBO vs enteritis more likely enteritis with diarrhea bowel rest, fluids recheck xr in am MIRLANDE TREJO MD 07/09/20 1138: CONSULT Assessment/Plan Assessment/Plan Patient seen and examined by me resting comfortably in bed does describe some abdominal pain is been having loose stools no vomiting no nausea. Abdomen is soft mildly distended diffusely tender to palpation no peritoneal signs continue with bowel rest appears most likely enteritis will follow agree with Nithya assessment plan SAGE POTTER APRN Jul 09, 2020 09:09 MIRLANDE TREJO MD Jul 09, 2020 11:38
[2020-07-09 11:00] VITALS: BP 114/54
--- NOTE | 2020-07-09 11:30 | HP ---
ADMIT DATE: 07/08/2020 CHIEF COMPLAINT: Abdominal pain. HISTORY OF PRESENT ILLNESS: The patient is a pleasant middle-aged female who presents with abdominal pain. She has associated diarrhea, this has been occurring for 2 days, rated at 7/10, worse with food, better with no food. I discussed the case with ER physician. It appears she may have a small-bowel obstruction. We have admitted the patient with consultation to General Surgery. PAST MEDICAL HISTORY: Hyperlipidemia, hypertension, arthritis, depression, anxiety, constipation, GERD and diabetes. ALLERGIES: IBUPROFEN. FAMILY HISTORY: Diabetes. SOCIAL HISTORY: She does not drink, smoke or take drugs. MEDICATIONS: Reviewed. She is on 13. Please refer to the MRAD. REVIEW OF SYSTEMS: GENERAL: No history of weight change, weakness or fevers. SKIN: No bruising, hair changes or rashes. EYES: No blurred, double or loss of vision. NOSE AND THROAT: No history of nosebleeds, hoarseness or sore throat. HEART: No history of palpitations, chest pain or shortness of breath on exertion. LUNGS: Denies cough, hemoptysis, wheezing or shortness of breath. GASTROINTESTINAL: She complains of abdominal pain, although it is improving. GENITOURINARY: No history of frequency, urgency, hesitancy or nocturia. NEUROLOGIC: Denies history of numbness, tingling, tremor or weakness. PSYCHIATRIC: No history of panic, anxiety or depression. ENDOCRINE: No history of heat or cold intolerance, polyuria or polydipsia. EXTREMITIES: Denies muscle weakness, joint pain, pain on walking or stiffness. PHYSICAL EXAMINATION: VITALS: Within normal limits and are stable. GENERAL: No apparent distress. Alert and oriented. HEENT: Normal cephalic atraumatic, external auditory canals are patent. EYES: Extraocular muscles are intact, pupils are equally round and reactive to light and accommodation. MUSCULOSKELETAL: Well developed, well nourished, good range of motion. ENDOCRINE: No thyromegaly was palpated. LYMPHATICS: No cervical chain or axillary nodes were noted. HEMATOPOIETIC: No bruising. NECK: Supple, no JVD, no thyromegaly was noted. LUNGS: Clear to auscultation in all lung mcneil without rhonchi or wheezing. HEART: RRR, S1, S2 present. Peripheral pulses intact, no obvious murmurs were noted. ABDOMEN: Soft, nontender. Positive bowel sounds no organomegaly, normal bowel sounds. EXTREMITIES: Without any cyanosis, clubbing, or edema. Pedal pulses intact, Homans sign is negative. NEUROLOGIC: Normal speech, normal tone. A and O x 3, moves all extremities, no obvious focal deficits. PSYCHIATRIC: Normal affect, normal mood. Stable. SKIN: No ulcerations or rashes, good skin turgor, no jaundice. VASCULAR: Good capillary refill, neurovascular bundle appears to be intact. LABORATORY DATA: White count is 10. CT of the abdomen shows moderate inflammatory stranding identified about the small bowel loops in the lower abdomen, likely enteritis with a small dilated fluid distended small bowel loop could be secondary to ileus or obstruction. ASSESSMENT AND PLAN: Resolving small-bowel obstruction and ileus and/or enteritis. Clinically, the patient is slowly improving. We have consulted General Surgery. We will do IV fluids, home meds, DVT prophylaxis. Full CODE. P.r.n. Lortab. P.r.n. fentanyl. Rule out COVID-19. HUMPHREY NICKERSON DO DR: JUNE/tyrone JOB#: [id number] / [id number]
[2020-07-09] MEDS ORDERED: DEXTROSE 50% 25 GM / 50ML DISP.SYRIN. IV PRN (12:30)
[2020-07-09] MEDS ORDERED: INSULIN LISPRO 300 UNITS/3 ML VIAL. SQ SCH (12:30)
[2020-07-09] MEDS ORDERED: INSULIN LISPRO 300 UNITS/3 ML VIAL. SQ ONE (13:00)
[2020-07-09 15:00] VITALS: BP 133/67
[2020-07-09] MEDS: INSULIN LISPRO 300 UNITS/3 ML VIAL. SQ SCH (17:00)
--- NOTE | 2020-07-09 17:40 | EKG ---
[facility] [address] [place] [address] Test Date: 2020-07-08 Test Time: 18:23:45 Pat Name: MARIA FERNANDA TODD Department: Room: 434 1 Gender: F Captain Assistant: : 1955 Requested By: CHANDNI BUTTERFIELD Order Number: [id number] Reading MD: Placido Abdi Measurements Intervals [place] Rate: 74 P: 44 OR: 168 QRS: -2 QRSD: 96 T: 149 QT: 384 QTc: 427 Interpretive Statements SINUS RHYTHM LEFTWARD AXIS T ABNORMALITY IN ANTEROLATERAL LEADS ABNORMAL ECG Electronically Signed On 07-13-2020 14:39:11 INSPECTING MACHINE ADJUSTER by Placido Abdi
[2020-07-09] MEDS: cefTRIAXone IV Push 1 GM VIAL. IVP SCH (17:48)
[2020-07-09 19:15] VITALS: BP 140/66
[2020-07-09 22:59] VITALS: BP 136/67
[2020-07-10 03:17] VITALS: BP 132/71
[2020-07-10 07:00] VITALS: BP 150/76
[2020-07-10] MEDS: INSULIN LISPRO 300 UNITS/3 ML VIAL. SQ SCH ×3 (08:00→17:00)
--- NOTE | 2020-07-10 08:02 | RAD ---
XR ABDOMEN COMP ACUTE INDICATION: sbo COMPARISON STUDY: None. FINDINGS: Lungs: Normal lung volume. Mild basilar linear opacities, probably subsegmental atelectasis. No confl uent consolidation. The tracheobronchial tree and hilar structures are normal. Pleura: No pleural effusion or pneumothorax. Heart and Mediastinum: The cardiomediastinal silhouette is normal. The great vessels of the thorax ar e normal. Abdomen: Nonobstructive bowel gas pattern. No free air. IMPRESSION: 1. Nonobstructive bowel gas pattern. 2. No consolidation. Electronically signed by: Stanley Perez MD (07/10/2020 7:59 AM) [id number]
--- NOTE | 2020-07-10 09:53 | PDOC ---
[employer] PROGRESS NOTE Date of Service DOS: DATE: 07/10/20 TIME: 09:53 Chief Complaint Chief Complaint Abdominal pain Diarrhea 7/10 on admission Possible small bowel obstruction CT on 07/08 showed inflammatory stranding and distended loops of small bowel CT on 07/10/2020 showed nonobstructive bowel gas pattern and no consolidation Hyperglycemia Hypertension History of Present Illness History of Present Illness 07/10/20 Patient seen and examined in room today Patient complains of constipation, headache, sinus pain and feels bloated Case discussed with nurse Charts reviewed Vitals/I&O Vitals/I&O: Vital Signs Date Time Temp Pulse Resp B/P (MAP) Pulse Ox O2 Delivery O2 Flow Rate FiO2 07/10/20 07:54 Room Air 07/10/20 07:00 97.9 88 14 150/76 (100) 98 97.9 I & O 07/09/20 07/09/20 07/10/20 15:00 23:00 07:00 Intake Total 0 ml 0 ml 0 ml Balance 0 ml 0 ml 0 ml Physical Exam General: Alert, Oriented X3, Cooperative Heart: Regular rate, Normal S1, Normal S2 Abdomen: Soft, Other (TTP upper abdomen, multiple abdominal scars) Extremities: No clubbing, No cyanosis Skin: No rashes, No breakdown Labs Labs: Laboratory Tests Test 07/09/20 12:01 07/09/20 16:34 Glucose (Fingerstick) 205 mg/dL (70-99) 100 mg/dL (70-99) Review of Systems Review of Systems: Denies diarrhea, chest pain, SOB endorses headache and sinus pressure Assessment and Plan Assessmemt and Plan Problems Medical Problems: (1) Ileus Status: Acute ASSESSMENT Abdominal pain Diarrhea 7/10 on admission Possible small bowel obstruction CT on 07/08 showed inflammatory stranding and distended loops of small bowel CT on 07/10/2020 showed nonobstructive bowel gas pattern and no consolidation Hyperglycemia Hypertension PLAN Continue IV fluids Keep NPO until GI or Surgery okays diet Continue sliding scale Continue home meds DVT ppx Trend labs Full code Comment Review of Relevant I have reviewed the following items aristides (where applicable) has been applied. Medications: Current Medications Medications (Trade) Dose Ordered Sig/Elroy Route PRN Reason Start Time Stop Time Status Last Admin Dose Admin Ceftriaxone Sodium (Rocephin) 1 gm Q24H IVP 07/09/20 18:00 07/09/20 17:48 Insulin Human Lispro (HumaLOG) 10 units 1X ONCE SQ 07/09/20 13:00 07/09/20 13:01 DC 07/09/20 13:00 Justifications for Admission Other Justification HUMPHREY NICKERSON III DO Jul 10, 2020 09:53
[2020-07-10] MEDS ORDERED: MORPHINE SULFATE 2 MG/ML VIAL. IV PRN (10:15)
[2020-07-10 11:00] VITALS: BP 147/71
--- NOTE | 2020-07-10 12:07 | PDOC ---
SAGE POTTER FRENCH EDGE OPERATOR 07/10/20 1207: SURGICAL PROGRESS NOTE DATE: 07/10/20 TIME: 12:06 Subjective no stool since yesterday mild upper abdominal pain no n/v Vital Signs Vital Signs Date Time Temp Pulse Resp B/P (MAP) Pulse Ox O2 Delivery O2 Flow Rate FiO2 07/10/20 11:00 97.8 78 16 147/71 (96) 100 Room Air 97.8 I&O Intake and Output 07/10/20 07:00 Intake Total 0 ml Balance 0 ml Intake Oral 0 ml # Voids 7 General: Alert, Oriented X3, Cooperative Abdomen: Soft, Other (mild ttp upper abdomen ) Labs Laboratory Tests Test 07/08/20 18:00 07/08/20 20:17 07/09/20 00:05 07/09/20 08:10 White Blood Count 10.3 x10^3/uL (4.0-11.0) Red Blood Count 4.34 x10^6/uL (3.50-5.40) Hemoglobin 12.9 g/dL (12.0-15.5) Hematocrit 39.2 % (36.0-47.0) Mean Corpuscular Volume 90 fL (79-100) Mean Corpuscular Hemoglobin 30 pg (25-35) Mean Corpuscular Hemoglobin Concent 33 g/dL (31-37) Red Cell Distribution Width 14.8 % (11.5-14.5) Platelet Count 260 x10^3/uL (140-400) Neutrophils (%) (Auto) 71 % (31-73) Lymphocytes (%) (Auto) 21 % (24-48) Monocytes (%) (Auto) 6 % (0-9) Eosinophils (%) (Auto) 1 % (0-3) Basophils (%) (Auto) 0 % (0-3) Neutrophils # (Auto) 7.3 x10^3/uL (1.8-7.7) Lymphocytes # (Auto) 2.2 x10^3/uL (1.0-4.8) Monocytes # (Auto) 0.7 x10^3/uL (0.0-1.1) Eosinophils # (Auto) 0.1 x10^3/uL (0.0-0.7) Basophils # (Auto) 0.0 x10^3/uL (0.0-0.2) Urine Collection Type Unknown Urine Color Yellow Urine Clarity Clear Urine pH 6.0 (<5.0-8.0) Urine Specific [place] 1.010 (1.000-1.030) Urine Protein Negative mg/dL (NEG-TRACE) Urine Glucose (UA) Negative mg/dL (NEG) Urine Ketones (Stick) Negative mg/dL (NEG) Urine Blood Trace (NEG) Urine Nitrite Negative (NEG) Urine Bilirubin Negative (NEG) Urine Urobilinogen Dipstick 0.2 mg/dL (0.2 mg/dL) Urine Leukocyte Esterase Moderate (NEG) Urine RBC Rare /HPF (0-2) Urine WBC 11-20 /HPF (0-4) Urine Squamous Epithelial Cells Many /LPF Urine Bacteria Moderate /HPF (0-FEW) Sodium Level 140 mmol/L (136-145) Potassium Level 4.0 mmol/L (3.5-5.1) Chloride Level 102 mmol/L (98-107) Carbon Dioxide Level 30 mmol/L (21-32) Anion Gap 8 (6-14) Blood Urea Nitrogen 14 mg/dL (7-20) Creatinine 1.0 mg/dL (0.6-1.0) Estimated GFR (Cockcroft-Gault) 67.8 BUN/Creatinine Ratio 14 (6-20) Glucose Level 229 mg/dL (70-99) Lactic Acid Level 2.5 mmol/L (0.4-2.0) 1.1 mmol/L (0.4-2.0) Calcium Level 9.2 mg/dL (8.5-10.1) Total Bilirubin 0.4 mg/dL (0.2-1.0) Aspartate Amino Transf (AST/SGOT) 22 U/L (15-37) Alanine Aminotransferase (ALT/SGPT) 28 U/L (14-59) Alkaline Phosphatase 94 U/L (46-116) Troponin I Quantitative 0.031 ng/mL (0.000-0.055) Total Protein 8.6 g/dL (6.4-8.2) Albumin 3.7 g/dL (3.4-5.0) Albumin/Globulin Ratio 0.8 (1.0-1.7) Lipase 78 U/L (73-393) Urine Opiates Screen Neg (NEG) Urine Methadone Screen Neg (NEG) Urine Barbiturates Neg (NEG) Urine Phencyclidine Screen Neg (NEG) Urine Amphetamine/Methamphetamine Neg (NEG) Urine Benzodiazepines Screen Neg (NEG) Urine Cocaine Screen Neg (NEG) Urine Cannabinoids Screen Neg (NEG) Urine Ethyl Alcohol Neg (NEG) Coronavirus (PCR) Not detected (Not Detected) SARS-CoV-2 Antigen (Rapid) Negative (NEGATIVE) Glucose (Fingerstick) 190 mg/dL (70-99) Test 07/09/20 12:01 07/09/20 16:34 07/10/20 10:40 Glucose (Fingerstick) 205 mg/dL (70-99) 100 mg/dL (70-99) 199 mg/dL (70-99) Laboratory Tests Test 07/09/20 16:34 07/10/20 10:40 Glucose (Fingerstick) 100 mg/dL (70-99) 199 mg/dL (70-99) Problem List Problems Medical Problems: (1) Ileus Status: Acute Assessment/Plan nonobstructive xr ok to trial clears Justicifation of Admission Dx: Justifications for Admission: Justification of Admission Dx: N/A MIRLANDE TREJO MD 07/10/20 1409: SURGICAL PROGRESS NOTE Assessment/Plan Overall patient is feeling better. No nausea no vomiting. Agree with Nithya assessment and plan SAGE POTTER APRN Jul 10, 2020 12:07 MIRLANDE TREJO MD Jul 10, 2020 14:09
[2020-07-10] MEDS: IV NORMAL SALINE 1000ML BAG 1,000 ML IV SCH ×2 (13:32→23:06)
[2020-07-10 15:00] VITALS: BP 165/87
[2020-07-10] MEDS: HYDROcodone/APAP 5/325MG 1 TAB TABLET PO PRN (15:17)
[2020-07-10] MEDS: cefTRIAXone IV Push 1 GM VIAL. IVP SCH (16:37)
[2020-07-10 19:30] VITALS: BP 148/73
[2020-07-10 23:10] VITALS: BP 143/71
[2020-07-11 03:12] VITALS: BP 138/76
[2020-07-11] MEDS: HYDROcodone/APAP 5/325MG 1 TAB TABLET PO PRN (05:43)
[2020-07-11 07:00] VITALS: BP 161/85
[2020-07-11] MEDS: IV NORMAL SALINE 1000ML BAG 1,000 ML IV SCH ×2 (08:12→17:14)
[2020-07-11] MEDS: INSULIN LISPRO 300 UNITS/3 ML VIAL. SQ SCH ×5 (08:16→17:00)
--- NOTE | 2020-07-11 10:49 | PDOC ---
[employer] PROGRESS NOTE Date of Service DOS: DATE: 07/11/20 TIME: 10:46 Chief Complaint Chief Complaint Abdominal pain Diarrhea 7/10 on admission Possible small bowel obstruction CT on 07/08 showed inflammatory stranding and distended loops of small bowel CT on 07/10/2020 showed nonobstructive bowel gas pattern and no consolidation Hyperglycemia Hypertension History of Present Illness History of Present Illness 07/11/2020 Patient seen and examined DWRN Charts reviewed 07/10/20 Patient seen and examined in room today Patient complains of constipation, headache, sinus pain and feels bloated Case discussed with nurse Charts reviewed Vitals/I&O Vitals/I&O: Vital Signs Date Time Temp Pulse Resp B/P (MAP) Pulse Ox O2 Delivery O2 Flow Rate FiO2 07/11/20 07:48 Room Air 07/11/20 07:00 97.5 76 16 161/85 (110) 96 97.5 I & O 0 07/10/20 07/10/20 07/11/20 15:00 23:00 07:00 Intake Total 280 ml 480 ml Balance 280 ml 480 ml Physical Exam General: Alert, Oriented X3, Cooperative Heart: Regular rate, Normal S1, Normal S2 Lungs: Clear Abdomen: Normal bowel sounds, Soft, Other (mild ttp upper abdomen ) Extremities: No clubbing, No cyanosis Skin: No rashes, No breakdown Labs Labs: Laboratory Tests Test 07/10/20 17:06 07/10/20 20:41 07/11/20 07:46 Glucose (Fingerstick) 207 mg/dL (70-99) 187 mg/dL (70-99) 221 mg/dL (70-99) Assessment and Plan Assessmemt and Plan Assessment Abdominal pain Diarrhea 7/10 on admission Possible small bowel obstruction CT on 07/08 showed inflammatory stranding and distended loops of small bowel CT on 07/10/2020 showed nonobstructive bowel gas pattern and no consolidation Hyperglycemia Hypertension Plan Started on clear liquid diet Full code DVT PPX PT/OT Continue home meds Trend labs Appreciate subspecialty input Problems Medical Problems: (1) Ileus Status: Acute Comment Review of Relevant I have reviewed the following items aristides (where applicable) has been applied. Medications: Current Medications Medications (Trade) Dose Ordered Sig/Elroy Route PRN Reason Start Time Stop Time Status Last Admin Dose Admin Sodium Chloride 1,000 ml @ 100 mls/hr Q10H IV 07/10/20 13:30 07/11/20 08:12 Justifications for Admission Other Justification HUMPRHEY NICKERSON III, DO Jul 11, 2020 10:49
[2020-07-11 11:00] VITALS: BP 159/77
--- NOTE | 2020-07-11 11:59 | PDOC ---
SAGE POTTER Alyssa PATTERN WORKER 07/11/20 1159: SURGICAL PROGRESS NOTE DATE: 07/11/20 TIME: 11:58 Subjective no abdominal pain having stool tolerating clears Vital Signs Vital Signs Date Time Temp Pulse Resp B/P (MAP) Pulse Ox O2 Delivery O2 Flow Rate FiO2 07/11/20 11:00 97.8 74 16 159/77 (104) 98 Room Air 97.8 I&O Intake and Output 07/11/20 07:00 Intake Total 760 ml Balance 760 ml Intake Oral 760 ml # Voids 3 # Bowel Movements 2 General: Alert, Oriented X3, Cooperative Abdomen: Soft, No tenderness Labs Laboratory Tests Test 07/09/20 12:01 07/09/20 16:34 07/10/20 10:40 07/10/20 17:06 Glucose (Fingerstick) 205 mg/dL (70-99) 100 mg/dL (70-99) 199 mg/dL (70-99) 207 mg/dL (70-99) Test 07/10/20 20:41 07/11/20 07:46 07/11/20 11:05 Glucose (Fingerstick) 187 mg/dL (70-99) 221 mg/dL (70-99) 238 mg/dL (70-99) Laboratory Tests Test 07/10/20 17:06 07/10/20 20:41 07/11/20 07:46 07/11/20 11:05 Glucose (Fingerstick) 207 mg/dL (70-99) 187 mg/dL (70-99) 221 mg/dL (70-99) 238 mg/dL (70-99) Problem List Problems Medical Problems: (1) Ileus Status: Acute Assessment/Plan advance diet no surgical needs, will sign off, please call with questions Justicifation of Admission Dx: Justifications for Admission: Justification of Admission Dx: N/A MIRLANDE TREJO MD 07/11/20 1309: SURGICAL PROGRESS NOTE Assessment/Plan Appears to be improving resolution of her ileus advance diet as tolerated. Agree with Nithya assessment and plan ABBEYMELECIOSAGE L PATTERN WORKER Jul 11, 2020 11:59 MIRLANDE TREJO MD Jul 11, 2020 13:09
[2020-07-11] MEDS ORDERED: MAG HYDROX/ALUMINUM HYD/SIMETH 30 ML ORAL.SUSP PO PRN (12:00)
[2020-07-11] MEDS ORDERED: ALPRAZolam 0.5 MG TABLET PO PRN (12:00)
[2020-07-11] MEDS: ASPIRIN CHEWABLE 81 MG TABLET. PO SCH (12:17)
[2020-07-11] MEDS: PANTOPRAZOLE 40 MG TABLET.DR. PO SCH (12:17)
[2020-07-11] MEDS: SERTRALINE 50 MG TABLET. PO SCH (12:17)
[2020-07-11] MEDS: NAPROXEN 250 MG TABLET PO SCH ×2 (12:17→21:25)
[2020-07-11] MEDS: POLYETHYLENE GLYCOL 3350 17 GM PACKET. PO SCH (12:17)
[2020-07-11] MEDS: METOPROLOL TART IMMED RELEASE 25 MG TABLET. PO SCH ×2 (12:18→21:25)
[2020-07-11] MEDS ORDERED: LISINOPRIL 10 MG TABLET PO SCH (13:00)
[2020-07-11 15:00] VITALS: BP 153/79
[2020-07-11] MEDS: cefTRIAXone IV Push 1 GM VIAL. IVP SCH (17:04)
[2020-07-11 19:35] VITALS: BP 153/77
[2020-07-11] MEDS ORDERED: ATORVASTATIN CALCIUM 40 MG TABLET. PO SCH (21:00)
[2020-07-11] MEDS ORDERED: INSULIN GLARGINE SYRINGE. SQ SCH ×2 (21:00)
[2020-07-11] MEDS: LACTOBACILLUS RHAMNOSUS GG 1 CAPSULE. PO SCH (21:25)
[2020-07-11 23:29] VITALS: BP 141/70
[2020-07-12 03:33] VITALS: BP 151/74
[2020-07-12] MEDS: IV NORMAL SALINE 1000ML BAG 1,000 ML IV SCH ×2 (05:30→15:30)
[2020-07-12 07:00] VITALS: BP 170/81
[2020-07-12] MEDS: NAPROXEN 250 MG TABLET PO SCH (09:00)
[2020-07-12] MEDS ORDERED: INSULIN GLARGINE SYRINGE. SQ SCH (09:00)
[2020-07-12] MEDS ORDERED: METOPROLOL TART IMMED RELEASE 25 MG TABLET. PO SCH (09:30)
[2020-07-12] MEDS ORDERED: LISINOPRIL 10 MG TABLET PO SCH (09:30)
[2020-07-12] MEDS: SERTRALINE 50 MG TABLET. PO SCH (09:43)
[2020-07-12] MEDS: LACTOBACILLUS RHAMNOSUS GG 1 CAPSULE. PO SCH (09:44)
[2020-07-12] MEDS: ASPIRIN CHEWABLE 81 MG TABLET. PO SCH (09:44)
[2020-07-12] MEDS: PANTOPRAZOLE 40 MG TABLET.DR. PO SCH (09:45)
[2020-07-12] MEDS: POLYETHYLENE GLYCOL 3350 17 GM PACKET. PO SCH (09:52)
[2020-07-12] MEDS: INSULIN LISPRO 300 UNITS/3 ML VIAL. SQ SCH ×6 (09:56→17:00)
[2020-07-12 10:28] VITALS: BP 176/85
--- NOTE | 2020-07-12 10:34 | NUR ---
SW following. Discussed with RN, pt from home, room air, GI soft, COVID-19 negative. SW consult for advanced directives - LAURO Damian will meet with pt RE this. Pt is tolerating diet. RN advised no SW needs and anticipates pt will discharge home today. SW will continue to follow.
[2020-07-12 14:39] VITALS: BP 165/80
[2020-07-12] MEDS ORDERED: NAPR-695 PO (15:45)
[2020-07-12] MEDS ORDERED: LISI20TA18 PO (15:45)
--- NOTE | 2020-07-12 16:06 | PDOC3 ---
Discharge Summary Visit Information Date of Admission: Jul 08, 2020 Date of Discharge: Jul 12, 2020 Admitting Diagnosis Comment: Resolving small-bowel obstruction and ileus and/or enteritis. Final Diagnosis Problems Medical Problems: (1) Ileus Status: Acute Brief Hospital Course Allergies Allergies Coded Allergies Type Severity Reaction Last Updated Verified ibuprofen Allergy Intermediate hyperventilate, vomit 05/10/18 Yes Vital Signs Vital Signs Date Time Temp Pulse Resp B/P (MAP) Pulse Ox O2 Delivery O2 Flow Rate FiO2 07/12/20 14:39 97.9 68 18 165/80 (108) 96 Room Air 97.9 Lab Results Laboratory Tests Test 07/10/20 17:06 07/10/20 20:41 07/11/20 07:46 07/11/20 11:05 Glucose (Fingerstick) 207 mg/dL (70-99) 187 mg/dL (70-99) 221 mg/dL (70-99) 238 mg/dL (70-99) Test 07/11/20 16:53 07/11/20 20:45 07/12/20 07:16 07/12/20 11:06 Glucose (Fingerstick) 143 mg/dL (70-99) 216 mg/dL (70-99) 218 mg/dL (70-99) 318 mg/dL (70-99) Test 07/12/20 13:19 Glucose (Fingerstick) 216 mg/dL (70-99) Laboratory Tests Test 07/11/20 16:53 07/11/20 20:45 07/12/20 07:16 07/12/20 11:06 Glucose (Fingerstick) 143 mg/dL (70-99) 216 mg/dL (70-99) 218 mg/dL (70-99) 318 mg/dL (70-99) Test 07/12/20 13:19 Glucose (Fingerstick) 216 mg/dL (70-99) Brief Hospital Course HISTORY AND PHYSICAL PATIENT: MARIA FERNANDA TODD ACCOUNT: [id number] : 1955 LOC: [address] [place] [address] AGE: 65 SEX: F STATUS: ADM IN LOCATION: [address] [place] [address] ADMIT DATE: 07/08/2020 CHIEF COMPLAINT: Abdominal pain. HISTORY OF PRESENT ILLNESS: The patient is a pleasant middle-aged female who presents with abdominal pain. She has associated diarrhea, this has been occurring for 2 days, rated at 7/10, worse with food, better with no food. I discussed the case with ER physician. It appears she may have a small-bowel obstruction. We have admitted the patient with consultation to General Surgery. Abdominal pain Diarrhea 7/10 on admission Possible small bowel obstruction CT on 07/08 showed inflammatory stranding and distended loops of small bowel CT on 07/10/2020 showed nonobstructive bowel gas pattern and no consolidation Hyperglycemia Hypertension 07/10/20 Patient seen and examined in room today Patient complains of constipation, headache, sinus pain and feels bloated Case discussed with nurse Charts reviewed 07/11/2020 Patient seen and examined DWRN Charts reviewed 07/12/2020 No acute events reported overnight, case discussed with nursing staff patient in no acute distress no complaints during my visit patient had levated blood pressure in the 170s on the morning of discharge but she received an extra 10 mg of Lisinopril and I have sent a new script, Signs and symptoms of alarm were discussed with the patient prior to discharge. She will be following up with her primary care physician within 1 week all of her concerns were addressed to the best of my abilities Physical Exam General: Alert, Oriented X3, Cooperative Heart: Regular rate, Normal S1, Normal S2 Lungs: Clear Abdomen: Normal bowel sounds, Soft, Extremities: No clubbing, No cyanosis Skin: No rashes, No breakdown Assessment Assessment IMAGING REPORT Signed PATIENT: MARIA FERNANDA TODD ACCOUNT: [id number] : 1955 LOCATION: [address] [place] [address] AGE: 65 SEX: F EXAM STATUS: ADM IN ORD. PHYSICIAN: SAGE POTTER APRN REASON: sbo PROCEDURE: ACUTE ABDOMEN SERIES XR ABDOMEN COMP ACUTE INDICATION: sbo COMPARISON STUDY: None. FINDINGS: Lungs: Normal lung volume. Mild basilar linear opacities, probably subsegmental atelectasis. No confluent consolidation. The tracheobronchial tree and hilar structures are normal. Pleura: No pleural effusion or pneumothorax. Heart and Mediastinum: The cardiomediastinal silhouette is normal. The great vessels of the thorax are normal. Abdomen: Nonobstructive bowel gas pattern. No free air. IMPRESSION: 1. Nonobstructive bowel gas pattern. 2. No consolidation. Electronically signed by: Michelle Perez MD (07/10/2020 7:59 AM) [id number] DICTATED and SIGNED BY: MICHELLE PEREZ MD DATE: 07/10/20 [id number] Discharge Information Condition at Discharge: Improved Follow Up: Weeks Disposition/Orders: D/C to Home Scheduled Aspirin (Aspirin) 81 Mg Tab.chew, 1 TAB PO DAILY, #30 Ref 3 (Reported) Entered as Reported by: CHING DENNIS on 02/19/17 184 Last Action: Continued on 07/11/20 1200 by NIAL CASTLE Atorvastatin Calcium (Lipitor) 80 Mg Tablet, 1 TAB PO DAILY for cholesterol, #30 Ref 5 (Reported) Entered as Reported by: Quan Murrieta on 02/01/19612 Last Action: Converted on 07/11/20 1200 by NIAL CASTLE Insulin Detemir (Levemir) 100 Unit/1 Ml Vial, 22 UNIT SQ DAILY for DM, (Reported) Entered as Reported by: RPUERT SUNG on 11/28/181406 Last Action: Converted on 07/11/20 1200 by NIAL CASTLE Insulin Detemir (Levemir) 100 Unit/1 Ml Vial, 40 UNIT SQ HS for DM, (Reported) Entered as Reported by: RUPERT SUNG on 11/28/181406 Last Action: Converted on 07/11/20 1200 by NIAL CASTLE Insulin Lispro (Humalog) 100 Unit/1 Ml Cartridge, 15 UNIT SQ TIDWMEALS for DM, (Reported) Entered as Reported by: RUPERT SUNG on 11/28/181406 Last Action: Converted on 07/11/20 1200 by NIAL CASTLE Lisinopril (Lisinopril) 20 Mg Tablet, 1 TAB PO DAILY for HTN, #30 Ref 5 Prescribed by: CAREY BOSWELL MD on 07/12/20 1545 Metoprolol Tartrate (Metoprolol Tartrate) 25 Mg Tablet, 1 TAB PO BID for blood pressure, #180 Ref 1 (Reported) Entered as Reported by: Quan Murrieta on 02/01/19 0615 Last Action: Continued on 07/11/20 1200 by NIAL CASTLE Pantoprazole Sodium (Pantoprazole Sodium ) 40 Mg Tablet.dr, 40 MG PO DAILYAC for gerd, #60 Prescribed by: ALFIE NEWMAN on 06/12/19 115 Last Action: Continued on 07/11/20 1200 by HUMPHREY NICKERSON Polyethylene Glycol 3350 (Polyethylene Glycol 3350) 17 Gm Powd.pack, 17 GM PO DAILY for constipation for 30 Days, #30 Prescribed by: CHRISTINE SANTIAGO on 02/02/19 1221 Last Action: Continued on 07/11/20 1200 by HUMPHREY NICKERSON Sertraline Hcl (Sertraline Hcl) 50 Mg Tablet, 1 TAB PO DAILY for ANTIDEPRESSANT, (Reported) Entered as Reported by: MORTEZA ORTIZ on 07/08/202312 Last Action: Continued on 07/11/20 1200 by HUMPHREY NICKERSON Scheduled PRN Alprazolam (Alprazolam) 0.5 Mg Tablet, 1 TAB PO PRN BID PRN for ANXIETY, (Reported) Entered as Reported by: MORTEZA ORTIZ on 07/08/202312 Last Action: Continued on 07/11/20 1200 by HUMPHREY NICKERSON Mag Hydrox/Al Hydrox/Simeth (Mag-Al Plus Xs Suspension) 30 Ml Oral.susp, 30 ML PO PRN Q2HR PRN for HEARTBURN / GAS for 7 Days Prescribed by: ALFIE NEWMAN on 06/12/191158 Last Action: Continued on 07/11/20 1200 by HUMPHREY NICKERSON Naproxen (Naproxen) 375 Mg Tablet, 375 MG PO BID PRN for PAIN for 5 Days, #10 if pain not resolved within 5 days please contact your primary care physician Prescribed by: CAREY BOSWELL MD on 07/12/20 1545 Discontinued Medications Lisinopril (Lisinopril) 10 Mg Tablet, 10 MG PO DAILY for FOR HYPERTENSION, #30 Ref 0 (Reported) Entered as Reported by: LALITA MONTALVO on 06/11/19 0615 Last Action: Continued on 07/11/20 1200 by HUMPHREY NICKERSON Justicifation of Admission Dx: Justifications for Admission: Justification of Admission Dx: N/A CAREY BOSWELL MD Jul 12, 2020 16:06
--- NOTE | 2020-07-12 17:15 | NUR ---
SW asked to assist pt with completion of an advanced directive for HC. SW met with pt. Pt is a/o and able to make needs known. Pt listed her sister Lyssa Montoya ([phone]) as her primary agent. Pt declined to list an alternate agent. Advanced directive notarized and copy placed on chart. No further needs from this SW.
== END 2020-07-12 17:43 | disposition home or self-care (01) | DRG 392 ==
LOC: ER 17:45 → ED HOLD 20:00 → 4 NORTH 22:00
PROVIDERS: ADMIT Internal Medicine; ATTEND Internal Medicine
DX: K52.9 Noninfective gastroenteritis and colitis, unspecified (principal); K56.609 Unspecified intestinal obstruction, unspecified as to partial versus complete obstruction; K56.7 Ileus, unspecified; E78.00 Pure hypercholesterolemia, unspecified; E78.5 Hyperlipidemia, unspecified; I10 Essential (primary) hypertension; I25.10 Atherosclerotic heart disease of native coronary artery without angina pectoris; M79.7 Fibromyalgia; Z82.49 Family history of ischemic heart disease and other diseases of the circulatory system; Z83.3 Family history of diabetes mellitus; Z90.49 Acquired absence of other specified parts of digestive tract; Z90.710 Acquired absence of both cervix and uterus; Z95.5 Presence of coronary angioplasty implant and graft; F32.9 Major depressive disorder, single episode, unspecified; F41.9 Anxiety disorder, unspecified; K21.9 Gastro-esophageal reflux disease without esophagitis; M19.90 Unspecified osteoarthritis, unspecified site; Z88.8 Allergy status to other drugs, medicaments and biological substances; E11.65 Type 2 diabetes mellitus with hyperglycemia; Z79.4 Long term (current) use of insulin; Z20.822 Contact with and (suspected) exposure to COVID-19
CPT/HCPCS: 36415; 74022; 74177; 80053; 80307; 81001; 82962; 83605; 83690; 84484; 85025; 87086; 87426; 93005; 96361; 96374; 96375; J0696; J1815; J3010; J7030; Q9967; U0003; 99285-25; G0378

== ENCOUNTER 2020-09-28 18:38 | Emergency (ER) | payer MEDICARE ==
[~2020-09-28] VITALS: Ht 160 cm; Wt 89.0 kg
[~2020-09-28 18:38] MED LIST changes: +ALPR0.5T6 PO; +LISI20TA18 PO; +SERT-267 PO
[2020-09-28] MEDS ORDERED: FAMOTIDINE 20 MG/2 ML VIAL IVP ONE (19:15)
[2020-09-28] MEDS ORDERED: HYOSCYAMINE 0.125 MG TAB.RAPDIS PO ONE (19:15)
[2020-09-28] MEDS ORDERED: ONDANSETRON PF 4 MG/2 ML VIAL. IVP ONE (19:15)
[2020-09-28] MEDS ORDERED: IV NORMAL SALINE 1000ML BAG 1,000 ML IV ONE ×2 (19:15→20:30)
[2020-09-28 19:55] LABS: BASO % 0 % (0-3); EOS # 0.1 x10^3/uL (0.0-0.7); EOS % 0 % (0-3); HEMATOCRIT 38.3 % (36.0-47.0); HEMOGLOBIN 12.8 g/dL (12.0-15.5); LYMPH # 1.1 x10^3/uL (1.0-4.8); LYMPH % 8 % (24-48); MEAN CORPUSCULAR HEMOGLOBIN 30 pg (25-35); MEAN CORPUSCULAR HGB CONC 33 g/dL (31-37); MEAN CORPUSCULAR VOLUME 91 fL (79-100); MONO # 1.4 x10^3/uL (0.0-1.1); MONO % 10 % (0-9); NEUT # 11.5 x10^3/uL (1.8-7.7); NEUT % 82 % (31-73); PLATELET COUNT 261 x10^3/uL (140-400); RED BLOOD COUNT 4.19 x10^6/uL (3.50-5.40); RED CELL DISTRIBUTION WIDTH 14.2 % (11.5-14.5); WHITE BLOOD COUNT 14.1 x10^3/uL (4.0-11.0)
[2020-09-28 20:03] LABS: CALCIUM 9.1 mg/dL (8.5-10.1); CREATININE 0.9 mg/dL (0.6-1.0); GFR 76.5; POTASSIUM 3.7 mmol/L (3.5-5.1)
[2020-09-28 20:09] LABS: ALBUMIN 3.8 g/dL (3.4-5.0); ALBUMIN/GLOBULIN RATIO 0.8 (1.0-1.7); MAGNESIUM 1.9 mg/dL (1.8-2.4); TOTAL BILIRUBIN 0.4 mg/dL (0.2-1.0); TOTAL PROTEIN 8.7 g/dL (6.4-8.2)
[2020-09-28] MEDS ORDERED: fentaNYL PF VIAL 100 MCG/2 ML VIAL IV ONE ×2 (20:30→23:00)
[2020-09-28 22:20] LABS: BILIRUBIN,URINE NEGATIVE (NEG); CLARITY,URINE CLEAR; COLOR,URINE YELLOW; NITRITE,URINE NEGATIVE (NEG); PH,URINE 5.5 (<5.0-8.0); PROTEIN,URINE NEGATIVE (NEG-TRACE); UROBILINOGEN,URINE 0.2 mg/dL (0.2 mg/dL)
[2020-09-28 22:23] LABS: BACTERIA,URINE 0 /HPF (0-FEW)
[2020-09-28] MEDS ORDERED: ONDA4TAB12 PO (22:53)
[2020-09-28] MEDS ORDERED: HYOS0.1265 SL (22:53)
[2020-09-28] MEDS ORDERED: FAMO-63 PO (22:53)
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
[2020-09-28 23:30] VITALS: BP 154/66
== END 2020-09-28 23:47 | disposition home or self-care (01) ==
LOC: ER 18:38
DX: R11.2 Nausea with vomiting, unspecified (principal); R19.7 Diarrhea, unspecified; R10.9 Unspecified abdominal pain; E11.9 Type 2 diabetes mellitus without complications; E78.00 Pure hypercholesterolemia, unspecified; I11.9 Hypertensive heart disease without heart failure; Z90.89 Acquired absence of other organs; Z90.49 Acquired absence of other specified parts of digestive tract; Z98.890 Other specified postprocedural states; Z88.2 Allergy status to sulfonamides
CPT/HCPCS: 36415; 80053; 81001; 82962; 83690; 83735; 85025; 96361; 96374; 96375; 96376; 99285; J2405; J3010; J3490; J7030

== ENCOUNTER → 2020-11-05 | Outpatient (CLI) | payer MEDICARE ==
[~2020-11-05] MED LIST changes: +FAMO-63 PO; +HYOS0.1265 SL; +ONDA4TAB12 PO; +REGADENOSON 0.4 MG/5 ML DISP.SYRIN. IV ONE
--- NOTE | 2020-11-05 12:46 | RAD ---
MR#: [id number] Date of Study: 11/05/2020 Ordering Physician: BRIEN KATZ, Referring Physician: JACKSON ZABALA Tech: RT Esthela (R) (N) APPROVED REPORT Test Type: Pharmacological Stress Nurse/Tech: Mariia Tam RN Test Indications: CAD Cardiac History: Cardiac cath with stents in 2018 & 2019, HTN, See EMR Medications: ASA 81mg, Insulin, See EMR. Medical History: DM, See EMR. Resting ECG: SR Resting Heart Rate: 66 bpm Resting Blood Pressure: 158/73mmHg Pretest Chest Pain: No chest pain Nurse/Tech Notes Lungs CTA, Heart tones regular. Consent: The procedure was explained to the patient in lay terms. Informed consent was witnessed. Burt eout was entered into [employer]. History and Stress Test performed by RT Kia (R) (N) Pharm. Details Pharmacologic stress testing was performed using 0.4mg per 5ml of regadenoson given intravenously ove r 7-10 seconds. Stress Symptoms No chest pain or symptoms. POST EXERCISE Reason for Termination: Infusion complete Max HR: 87 bpm Max Blood Pressure: 138/67mmHg Blood Pressure response to exercise: Normal blood pressure response during stress. Heart Rate response to exercise: WNL Chest Pain: No. Arrhythmia: No. ST Change: No. No Changes from baseline EKG. INTERPRETATION Stress EKG Conclusion: Baseline EKG showed sinus rhythm. Non-diagnostic changes at peak stress. No arrhythmias. Imaging Protocol IMAGE PROTOCOL: Rest Tc-99m/stress Tc-99m 1 day Rest: Stress: Viability: Radiopharm.Tc99m HnasnywofVd22w Sestamibi Dose10.8mCi 31mCi Duration 13min. 13min. Img Date 11/05/2020 11/05/2020 Inj-Img [id number]. 60min. Rest Admin Site:IV - Left ForearmAdministrator:RT Kia (R)(N) Stress Admin Site: IV - Left ForearmAdministrator: RT Kia (R)(N) STRESS DATA End Diast. Vol.86.0mlLVEDV index BSA44.0ml End Syst. Vol.25.0mlLVESV index BSA13.0ml Myocardial Keqc085.0gEject. Kaqpkjll95.0% Stress Scores Regional WT0.00Summed WT1.00 Regional WM0.00Summed WM4.00 Study quality was good. Left Ventricular size was Normal at Rest and Stress. Lung uptake was . Left Ventricular ejection fraction is 72%. The rest and stress images show normal perfusion, normal contraction and thickening. LV Perf. Quant 17 Seg. SSS4.00 17 Seg. SRS7.00 17 Seg. SDS0.00 Stress Defect Extent (% LAD)3.80Rest Defect Extent (% LAD)3.80Rev. Defect Extent (% LAD)3.80 Stress Defect Extent (% LCX) 8.80Rest Defect Extent (% LCX)11.30Rev. Defect Extent (% LCX)8.80 Stress Defect Extent (% RCA)2.20Rest Defect Extent (% RCA)23.30Rev. Defect Extent (% RCA)2.20 Stress Defect Extent (% WENDY)7.80Rest Defect Extent (% WENDY)14.80Rev. Defect Extent (% WENDY)7.80 Conclusion 1. Regadenoson cardioisotope stress test did not show any evidence of ischemia or infarct. 2. Normal left ventricular systolic function with ejection fraction calculated at 72%. 3. Low risk for cardiac events. Signed by : Placido Abdi, Electronically Approved : 11/05/2020 12:46:10
== END ==
LOC: NM 07:41
PROVIDERS: ATTEND Internal Medicine Cardiovascular Disease
DX: I10 Essential (primary) hypertension (principal)
CPT/HCPCS: 78452; 93017; A9500; J2785

== ENCOUNTER → 2021-06-08 | Outpatient (CLI) | payer MEDICARE ==
[~2021-06-08] MED LIST changes: -LISI-517 PO; -LISI1TAB23 PO; +LISI1TAB35 PO; +LISI5TAB15 PO; -REGADENOSON 0.4 MG/5 ML DISP.SYRIN. IV ONE
--- NOTE | 2021-06-08 16:46 | RAD ---
BILATERAL DIGITAL SCREENING 2-D AND 3-D MAMMOGRAM INDICATION: Routine screening. COMPARISON: 04/12/2020, 04/09/2019, 01/10/2018. Interpretation was made using CAD. FINDINGS: Breast Density: There are scattered areas of fibroglandular density. RIGHT BREAST: No suspicious masses, calcifications or areas of architectural distortion are seen. Lance ign calcifications. LEFT BREAST: No suspicious masses, calcifications or areas of architectural distortion are seen. J Luis gn calcifications. IMPRESSION: 1. No imaging evidence of malignancy. ASSESSMENT: BI-RADS 1: Negative. RECOMMENDATION: Routine annual screening mammogram. The facility will notify the patient of the results via mail. Patient information will be entered int o the mammography reminder system with a target recall date for the next mammogram. A reminder letter will be generated by the facility. Electronically signed by: Axel Mckoy MD (06/08/2021 4:44 PM) [id number]
== END ==
LOC: MAMMO 13:12
PROVIDERS: ATTEND Family Medicine
DX: Z12.31 Encounter for screening mammogram for malignant neoplasm of breast (principal)
CPT/HCPCS: 77063; 77067